=== PATIENT | male | born 1995 | race African-American/Black ===

== ENCOUNTER 2024-09-10 07:43 | Inpatient (IN) ==
--- NOTE | 2024-09-10 08:27 | Emergency Department Note ---
Impression & Plan Pleural effusion, Shortness of breath, Unintended weight loss, Night sweats ED Provider Note NAME: RACHEL [id number] JOSE ANGEL AGE: 29 SEX: M : 1995 ARRIVES VIA: Walk-In INFORMANT: Patient ED PROVIDER(S): Fuentes Russo MD CHIEF COMPLAINT: Pleural effusion, referred. PLAN: Disposition: Admit MEDICAL DECISION MAKING: The patient is a 29-year-old [place] gentleman, Kosovan-speaking, who presents to the emergency department via walk-in from [facility] for evaluation of cough and moderate sized left pleural effusion seen on chest x-ray yesterday in the setting of patient having cough and congestion since his arrival to their facility approximately a week ago. The patient reports that he has had cough that has been ongoing for months and has had fevers and night sweats as well as unintended weight loss for the same amount of time. Patient denies ever having any diagnosis of respiratory illnesses when living in [facility]. On evaluation the patient is no distress, afebrile with heart in the 90s and vital signs otherwise stable. O2 saturation 97% on room air. Patient is diminished breath sounds of the left mid to lower lung jakc. Volar aspect of the left forearm demonstrates circular area of induration >15mm correlating with site of patient's recent PPD test. EKG without volar aspect of left forearm overt acute ischemia. Chest ray demonstrates large left-sided pleural effusion. Findings better characterized on CT imaging subsequently. WBC within normal limits without neutrophilia or left shift. Mild lymphopenia of 0.94 is present. H/H11.1/32.3 with normocytic MCV without prior for comparison. Platelets within normal limits. INR 1.2, nonspecific. Chemistry without metabolic acidosis. Sodium 130 and electrolytes otherwise unremarkable. AST and ALT are mildly elevated at 4186, respectively without prior for comparison. High-sensitivity troponin is undetectable. BNP is normal. Lipase is normal. Procalcitonin is not elevated. Respiratory BioFire was negative. QuantiFERON gold test was obtained and sent out and is pending. Patient also consented to HIV testing for completeness. He denies any history of HIV or concern for exposure. CTA of the chest was performed and was negative for PE. Chest x-ray findings are further characterized with large left pleural effusion with compressive atelectasis of majority of the left lower lobe and a small portion of the left upper lobe. There is no consolidation or pleural effusion on the right. Soft tissue density at the anterior mediastinum with a few lymph nodes measuring up to 1.1 x 1.0 cm. No pericardial effusion. FORREST Carter pulmonology. Appreciate consultation and recommendations. Recommends admission to medicine service for TB rule out and thoracentesis which he will perform today. Case was discussed with Viridiana Mcgill PAC with Dr. [facility], who will evaluate the patient for admission. Further management per admitting team. Triage Nursing notes reviewed and agree them. Prior/external medical records reviewed Vital Signs: reviewed Differential diagnosis: Reactive airway disease, pneumonia, pneumothorax, COPD, CHF, infections, cardiac ischemia, pulmonary embolism, musculoskeletal, gastrointestinal, as well as other pathologies. ER treatment provided: See below. Diagnostics interpreted by me: ECG: Normal sinus rhythm, 96 bpm, no ectopy, no overt ST elevation or depression, QTc 457, QRS 86. Cardiac Monitoring: An order for continuous cardiac monitoring was placed and demonstrated Normal sinus rhythm, 96 bpm, no ectopy. Laboratory studies: See below Imaging studies: See below Consultation(s): FORREST Carter pulmonology. Viridiana Mcgill PAC with Dr. [facility]. HPI: Per MDM. ROS: See above HPI for pertinent positives & negatives. A total of 10 systems reviewed and were otherwise negative. VITALS:See Below PHYSICAL EXAMINATION: GENERAL: Awake, alert, in no distress HENT: Normocephalic, atraumatic. Oropharynx with dry mucous membranes and otherwise unremarkable. EYES: Normal conjunctiva. Sclera non-icteric. NECK: Supple. No nuchal rigidity. FROM. No JVD. RESPIRATORY: Diminished breath sounds of the left mid to lower lung jack CARDIAC: Regular rate, normal rhythm. Extremities warm and well perfused. Pulses equal. ABDOMEN: Soft, non-distended. No tenderness to palpation. No rebound or guarding. No masses. MUSCULOSKELETAL: Chest examination reveals no tenderness. The back is symmetrical on inspection without obvious abnormality. There is no CVA tenderness to palpation. No joint edema. LOWER EXTREMITIES: Calves are equal size bilaterally and non-tender. No edema. No discoloration. NEURO: Normal sensorium. No sensory or motor deficits noted. SKIN: No jaundice noted. Left forearm demonstrates circular area of induration >15mm correlating with site of patient's recent PPD test. Fuentes Russo MD Past Med/Surg History Problem List Night sweats (Acute) Unintended weight loss (Acute) Shortness of breath (Acute) Mediastinal shift Pleural effusion (Acute) Medical History No pertinent past medical history Surgical History No pertinent past surgical history Social History Smoking Status: Never smoker Preferred Language: Kosovan Communication Tools: IPad Current Living Situation: Other Current Living Situation Comment: [facility] half-way Feels Safe at Home: Yes Allergies Allergies Allergy/AdvReac Type Severity Reaction Status Date / Time No Known Allergies Allergy Unverified 09/10/24 11:50 Home Meds Home Medications Medication Instructions Recorded Confirmed guaifenesin 100 mg/5 mL oral 200 mg PO Q4H PRN Cough/Congestion 09/10/24 09/10/24 liquid (Kirsty-Tussin) Results & Data (ED) Vital Signs Vital Signs - 24 hr 09/10/24 07:58 09/10/24 08:43 09/10/24 09:03 Temperature 37.3 C Temperature Source Temporal Artery Scan Pulse Rate 96 H 91 H 98 H Pulse Rate [Apical] Pulse Rate from SpO2 Sensor 99 H Pulse Rhythm Regular Pulse Strength Normal Respiratory Rate 16 17 Respiratory Effort / Characteristics Non-Labored Spontaneous Respiratory Depth Normal Blood Pressure 121/82 Blood Pressure [Right Arm] Blood Pressure Mean 95 Blood Pressure Mean [Right Arm] Blood Pressure Position Sitting Blood Pressure Position [Right Arm] Pulse Oximetry 97 99 Oxygen Delivery Method Room Air Room Air Sepsis Recent Fever Within 48 Hours No Sepsis New/Unexplained Change in Mental Status N/A Sepsis Action Taken by Nursing No Action Required 09/10/24 10:00 09/10/24 11:27 09/10/24 12:00 Temperature Temperature Source Pulse Rate Pulse Rate [Apical] 91 H 89 Pulse Rate from SpO2 Sensor Pulse Rhythm Pulse Strength Respiratory Rate 14 18 Respiratory Effort / Characteristics Non-Labored Spontaneous Non-Labored Spontaneous Respiratory Depth Normal Normal Blood Pressure Blood Pressure [Right Arm] 124/81 128/80 Blood Pressure Mean Blood Pressure Mean [Right Arm] 95 96 Blood Pressure Position Blood Pressure Position [Right Arm] Semi-fowlers Semi-fowlers Pulse Oximetry 99 98 100 Oxygen Delivery Method Room Air Room Air Room Air Sepsis Recent Fever Within 48 Hours Sepsis New/Unexplained Change in Mental Status Sepsis Action Taken by Nursing 09/10/24 12:47 09/10/24 14:00 Temperature Temperature Source Pulse Rate 91 H Pulse Rate [Apical] 114 H Pulse Rate from SpO2 Sensor Pulse Rhythm Pulse Strength Respiratory Rate 29 H Respiratory Effort / Characteristics Non-Labored Spontaneous Respiratory Depth Normal Blood Pressure Blood Pressure [Right Arm] 125/74 Blood Pressure Mean Blood Pressure Mean [Right Arm] 91 Blood Pressure Position Blood Pressure Position [Right Arm] Semi-fowlers Pulse Oximetry 100 Oxygen Delivery Method Room Air Sepsis Recent Fever Within 48 Hours Sepsis New/Unexplained Change in Mental Status Sepsis Action Taken by Nursing Laboratory Data Attestation: I reviewed the patient's lab results. 09/10/24 09:33 09/10/24 09:33 Lab Results 09/10/24 09/10/24 Range/Units 09:33 09:45 WBC 5.76 (4.8-10.8) K/ul RBC 4.03 L (4.70-6.10) M/uL Hgb 11.1 L (14.0-18.0) g/dl Hct 32.3 L (42.0-52.0) % MCV 80.1 (80.0-100.0) fL MCH 27.5 (25.0-34.0) pg MCHC 34.4 (32.0-36.0) g/dL RDW Std Deviation 35.6 L (36.4-46.3) fL RDW Coeff of Luigi 12.1 (11.5-14.5) % Plt Count 382 (130-400) K/uL MPV 9.6 (9.4-12.4) fL Immature Gran % (Auto) 0.7 % Neut % (Auto) 66.6 % Lymph % (Auto) 16.3 % [place] % (Auto) 11.6 % Eos % (Auto) 4.3 % Baso % (Auto) 0.5 % Neut # (Auto) 3.83 (1.40-6.50) K/uL Lymph # (Auto) 0.94 L (1.20-3.40) K/uL [place] # (Auto) 0.67 H (0.11-0.59) K/uL Eos # (Auto) 0.25 (0.00-0.50) K/uL Baso # (Auto) 0.03 (0.00-0.20) K/uL Immature Gran # (Auto) 0.04 (0.01-0.20) K/uL PT 12.4 H (9.0-12.0) Seconds INR 1.2 H (0.9-1.1) Sodium 130 L (136-145) mmol/L Potassium 3.9 (3.5-5.1) mmol/L Chloride 99 (98-107) mmol/L Carbon Dioxide 21 (21-32) mmol/L Anion Gap 10 (3-11) BUN 11 (6-23) mg/dl Creatinine 0.71 (0.6-1.4) mg/dl Est Cr Clr Drug Dosing 146.3 ml/min eGFR 125.79 BUN/Creatinine Ratio 15.5 (10-20) Glucose 93 (70-99(Fasting)) mg/dl Calcium 8.6 (8.6-10.3) mg/dl Magnesium 2.2 (1.7-2.4) mg/dl Total Bilirubin 0.6 (0.2-1.0) mg/dl AST 41 H (13-39) U/L ALT 86 H (7-52) U/L Alkaline Phosphatase 67 (34-104) U/L Troponin I High Sens < 2.3 (0-20) pg/ml B-Natriuretic Peptide 35 (0-100) pg/ml Total Protein 8.5 H (6.0-8.3) gm/dl Albumin 3.3 L (3.4-5.0) gm/dl Globulin 5.2 H (2.5-4.0) gm/dl Albumin/Globulin Ratio 0.6 L (0.9-2) Lipase 17 (11-82) U/L Procalcitonin 0.12 (0-0.5) ng/ml Adenovirus (PCR) Not Detected (NotDetected) B. pertussis DNA (PCR) Not Detected (NotDetected) B.parapertussis DNA PCR Not Detected (NotDetected) C. pneumoniae DNA (PCR) Not Detected (NotDetected) Coronavirus OC43 (PCR) Not Detected (NotDetected) Coronavirus HKU1 (PCR) Not Detected (NotDetected) Coronavirus 229E (PCR) Not Detected (NotDetected) SARS-CoV-2 (PCR) Not Detected (NotDetected) Coronavirus NL63 (PCR) Not Detected (NotDetected) HIV 1&2 Ab/P24 Ag 4thGn Negative (Negative) Human Metapneumovir PCR Not Detected (NotDetected) Influenza Type A (PCR) Not Detected (NotDetected) Influenza Type B (PCR) Not Detected (NotDetected) M. pneumoniae (PCR) Not Detected (NotDetected) Parainfluenza 1 (PCR) Not Detected (NotDetected) Parainfluenza 2 (PCR) Not Detected (NotDetected) Parainfluenza 3 (PCR) Not Detected (NotDetected) Parainfluenza 4 (PCR) Not Detected (NotDetected) RSV (PCR) Not Detected (NotDetected) Entero/Rhino (PCR) Not Detected (NotDetected) TB Test (QFT) Gold Plus Cancelled TB Test (QFT) Nil Cancelled TB Test Mitogen - Nil Cancelled TB Test Ag - Nil 1 Cancelled TB Test Ag - Nil 2 Cancelled Administered Medications Discontinued Medications Ioversol (Optiray 320 125ml) 100 ml IV ONCE ONE Stop: 09/10/24 10:43 Last Admin: 09/10/24 10:43 Dose: 100 ml Documented By: JAR Imaging Data Radiologist's Impression: Chest X-Ray 09/10/24 08:25 XR chest 1V portable CLINICAL HISTORY: Chest pain, nonspecific COMPARISON STUDY: None FINDINGS: Heart size and pulmonary vasculature are normal. There is a large left pleural effusion and consolidation at the left mid and lower lung. Right lung remains well aerated. No pneumothorax. IMPRESSION: Large left pleural effusion and associated consolidation at the left lower lung. Follow-up is recommended to rule out underlying mass. ACT 112: Positive. There are findings on this exam that require communication between the performing entity and the patient following Patient Test Result Information Act ([place] Act 112) guidelines. Electronically signed by: Param Dubon M.D. 09/10/2024 8:39 AM Chest CTA 09/10/24 09:23 CT angio chest PE protocol CT DOSE: 442.81 mGy.cm HISTORY: sob, left pleural effusion, r/o PE. TECHNIQUE: Multiple CTA images of the chest were obtained after the intravenous administration of 100 ml Optiray. Coronal and sagittal MIPS were obtained from the axial data set and were submitted for review. All measurements were obtained according to NASCET criteria. A dose lowering technique was utilized adhering to the principles of ALARA. COMPARISON STUDY: None FINDINGS: There are trace airway secretions. There is a large left pleural effusion with compressive atelectasis of the majority of the left lower lobe and a small portion of the left upper lobe. There is no consolidation or pleural effusion on the right. No pneumothorax. [place] artifact limits evaluation of the mediastinum. There is soft tissue density at the anterior mediastinum with a few lymph nodes, largest measuring 1.1 x 1.0 cm. No enlarged adenopathy seen otherwise. No pericardial effusion. No thoracic aortic dissection or aneurysm. No pulmonary embolism seen. No acute osseous findings. IMPRESSION: 1. No pulmonary embolism seen. 2. Large left pleural effusion with near complete compressive atelectasis of the left lower lung lobe. Recommend follow-up chest CT after the pleural effusion has resolved to rule out underlying mass at the left lower lung lobe. 3. Mild soft tissue density at the anterior mediastinum likely represents residual thymus. There is an upper limits of normal anterior mediastinal lymph node. Suggest attention on follow-up. ACT 112: Positive. There are findings on this exam that require communication between the performing entity and the patient following Patient Test Result Information Act ([place] Act 112) guidelines. The above report was generated using voice recognition software. It may contain grammatical, syntax or spelling errors. Electronically signed by: Param Dubon M.D. 09/10/2024 10:56 AM Discharge Plan Visit Data Chief Complaint: Respiratory Problems Stated Complaint: FLUID ON LUNGS ED Provider: Fuentes Russo Discharge Problem: Pleural effusion, Shortness of breath, Unintended weight loss, Night sweats Patient Disposition: Admitted As Inpatient Condition: Fair Discharge Instructions Interventions: ED Discharge Assessment Last Done: 09/10/24 14:42 Forms Stand Alone Forms: [facility] Prescriptions Prescriptions: No Action guaifenesin [Kirsty-Tussin] 100 mg/5 mL Liquid 200 mg PO Q4H PRN (Reason: Cough/Congestion) Referrals Referrals: PCP,NO [Physician] -
--- NOTE | 2024-09-10 08:41 | XRay Report ---
XR chest 1V portable CLINICAL HISTORY: Chest pain, nonspecific COMPARISON STUDY: None FINDINGS: Heart size and pulmonary vasculature are normal. There is a large left pleural effusion and consolidation at the left mid and lower lung. Right lung remains well aerated. No pneumothorax. IMPRESSION: Large left pleural effusion and associated consolidation at the left lower lung. Follow- up is recommended to rule out underlying mass. ACT 112: Positive. There are findings on this exam that require communication between the performing entity and the patient following Patient Test Result Information Act ([place] Act 112) guidelines. Electronically signed by: Param Dubon M.D. 09/10/2024 8:39 AM
[2024-09-10 09:45] LABS: Basophils # (auto) 0.03 K/uL (0.00-0.20); Basophils % (auto) 0.5 %; Eosinophils # (auto) 0.25 K/uL (0.00-0.50); Eosinophils % (auto) 4.3 %; Hematocrit (blood only) 32.3 % (42.0-52.0); Hemoglobin 11.1 g/dl (14.0-18.0); Immature Granulocytes # (auto) 0.04 K/uL (0.01-0.20); Immature Granulocytes % (auto) 0.7 %; Lymphocytes # (auto) 0.94 K/uL (1.20-3.40); Lymphocytes % (auto) 16.3 %; Mean Corpuscular Hemoglobin 27.5 pg (25.0-34.0); Mean Corpuscular Hgb Conc 34.4 g/dL (32.0-36.0); Mean Corpuscular Volume 80.1 fL (80.0-100.0); Mean Platelet Volume 9.6 fL (9.4-12.4); Monocytes # (auto) 0.67 K/uL (0.11-0.59); Monocytes % (auto) 11.6 %; Neutrophils # (auto) 3.83 K/uL (1.40-6.50); Neutrophils % (auto) 66.6 %; Platelet Count 382 K/uL (130-400); RDW Coefficient of Variation 12.1 % (11.5-14.5); RDW Standard Deviation 35.6 fL (36.4-46.3); Red Blood Count 4.03 M/uL (4.70-6.10); White Blood Count 5.76 K/ul (4.8-10.8)
[2024-09-10 10:10] LABS: Alanine Aminotransferase 86 U/L (7-52); Albumin Globulin Ratio 0.6 (0.9-2); Albumin Level 3.3 gm/dl (3.4-5.0); Alkaline Phosphatase 67 U/L (34-104); Anion Gap 10 (3-11); Aspartate Aminotransferase 41 U/L (13-39); BUN Creatinine Ratio 15.5 (10-20); Bilirubin,Total 0.6 mg/dl (0.2-1.0); Blood Urea Nitrogen 11 mg/dl (6-23); Calcium 8.6 mg/dl (8.6-10.3); Carbon Dioxide 21 mmol/L (21-32); Chloride 99 mmol/L (98-107); Creatinine Clr Calc Pharmacy 146.3 ml/min; Globulin 5.2 gm/dl (2.5-4.0); Glucose 93 mg/dl (70-99(Fasting)); Lipase 17 U/L (11-82); Magnesium 2.2 mg/dl (1.7-2.4); Potassium 3.9 mmol/L (3.5-5.1); Sodium 130 mmol/L (136-145); Total Protein 8.5 gm/dl (6.0-8.3)
[2024-09-10 10:12] LABS: Troponin I High Sensitivity < 2.3 pg/ml (0-20)
[2024-09-10 10:20] LABS: INR 1.2 (0.9-1.1); Prothrombin Time 12.4 Seconds (9.0-12.0)
--- NOTE | 2024-09-10 10:35 | Pulmonary Consultation ---
Date of Consultation September 10, 2024 Assessment & Plan (1) Pleural effusion: (2) Mediastinal shift: (3) Loculated pleural effusion: (4) Night sweats: (5) Unintended weight loss: (6) Shortness of breath: Plan CT chest 09/10/2024 personally reviewed: Large left-sided pleural effusion with mediastinal shift to the right Compressive atelectasis of the left lower lobe No significant mediastinal lymphadenopathy -- Moderate left-sided loculated pleural effusion Differential includes infectious versus noninfectious Tuberculosis-differential given he is from [facility], malignancy cannot be ruled out especially given questionable pleural mass on the bedside ultrasound Procalcitonin 0.12 Respiratory BioFire negative for everything Has lost approximately 8 pounds unintentionally in the recent past, denies any night sweats No known exposure to tuberculosis. Has [employer]. Denies any history of hepatitis or HIV Has never been treated for tuberculosis. Plan: Patient is at high risk for tuberculosis and TB related pleural effusion Would recommend to keep the patient in negative pressure room Continue with broad-spectrum antibiotics AFB sputum daily x 3 Follow sputum culture Will plan to do thoracentesis later today I spent more than 75 minutes looking in the chart, images, discussing the plan of care with the patient with the help of manager supplier, RN as well as primary team Please note the above document was generated using voice recognition software. It may contain grammatical, syntax or spelling errors.Any formal questions or concerns about the content, text or information contained within the body of this dictation should be directly addressed to the provider for clarification. History of Present Illness History of Present Illness 29-year-old male presents to the hospital for cough. Pulmonary consulted for left-sided pleural effusion Past medical history: Noncontributory Patient is originally from [facility], Pakistani-speaking. Audio and video cigar brander was used to help with interrogation and even getting the consent At the time of examination patient was not in respiratory distress He was saturating 97-98% on room air He states that he has not been feeling well for couple of weeks He has been coughing and bringing up clear phlegm. Denies any hemoptysis No unusual headache or blurry vision No abdominal pain No nausea vomiting Has lost approximately 8 pounds unintentionally in the recent past, denies any night sweats No known exposure to tuberculosis. Has [facility] [employer] [facility]. Denies any history of hepatitis or HIV Has never been treated for tuberculosis. Originally from [facility], has been in [place] 2002. Social history: Lifetime non-smoker No pets at home Allergies Allergy/AdvReac Type Severity Reaction Status Date / Time No Known Allergies Allergy Unverified 09/10/24 11:50 Home Medications Medication Instructions Recorded Confirmed Type guaifenesin 100 mg/5 mL oral 200 mg PO Q4H PRN Cough/Congestion 09/10/24 09/10/24 History liquid (Kirsty-Tussin) Patient History Medical History No pertinent past medical history Surgical History No pertinent past surgical history Social History Smoking Status: Never smoker Preferred Language: Pakistani Communication Tools: IPad Current Living Situation: Other Current Living Situation Comment[facility] Feels Safe at Home: Yes Review of Systems 2 Review of Systems: All systems reviewed & are unremarkable except as noted in HPI & below Physical Exam 2 Physical Exam: Constitutional: No acute distress HEENT: EOMI, PERRLA Respiratory system: Decreased air entry in the left side, no wheeze, rhonchi, positive crackles on the left CVS: S1-S2 positive, no murmurs or gallops Abdomen: Soft, nontender, nondistended, positive bowel sounds x4 Extremities: +2 pulses bilaterally radialis/ dorsalis pedis, no cyanosis, no edema Neuro: Awake alert oriented x3 Psych: Normal mood and affect G/U: No [place] Skin: no rashes, warm and dry Lymphatic: no cervical or axillary lymphadenopathy Results & Data Results & Data Vital Signs (Past 12 Hours) Vital Signs Temp Pulse Resp BP Pulse Ox O2 Del Method 09/10/24 09:03 98 H 17 99 Room Air 09/10/24 08:43 91 H 09/10/24 07:58 37.3 C 96 H 16 121/82 97 Room Air Laboratory Results 09/10/24 09:33 09/10/24 09:33 PG Care Time/CCT Total # of Minutes Spent Total Time Spent with Patient: Total time spent is greater than 50% in coordination of care (as documented) at patient's floor/unit and/or counseling patient: Coding Level of Care Code 94251 INT INP/OBS CARE MIN Diagnoses Pleural effusion J90 Mediastinal shift R93.89 Loculated pleural effusion J90 Night sweats R61 Unintended weight loss R63.4 Shortness of breath R06.02
[2024-09-10] MEDS: OPTIRAY 320 125ml IV ONE (10:43)
--- NOTE | 2024-09-10 10:58 | CT Scan Report ---
CT angio chest PE protocol CT DOSE: 442.81 mGy.cm HISTORY: sob, left pleural effusion, r/o PE. TECHNIQUE: Multiple CTA images of the chest were obtained after the intravenous administration of 100 ml Optiray. Coronal and sagittal MIPS were obtained from the axial data set and were submitted for review. All measurements were obtained according to NASCET criteria. A dose lowering technique was u tilized adhering to the principles of ALARA. COMPARISON STUDY: None FINDINGS: There are trace airway secretions. There is a large left pleural effusion with compressive atelectasis of the majority of the left lower lobe and a small portion of the left upper lobe. There is no consolidation or pleural effusion on the right. No pneumothorax. [place] artifact limits evaluati on of the mediastinum. There is soft tissue density at the anterior mediastinum with a few lymph node s, largest measuring 1.1 x 1.0 cm. No enlarged adenopathy seen otherwise. No pericardial effusion. No thoracic aortic dissection or aneurysm. No pulmonary embolism seen. No acute osseous findings. IMPRESSION: 1. No pulmonary embolism seen. 2. Large left pleural effusion with near complete compressive atelectasis of the left lower lung lobe . Recommend follow-up chest CT after the pleural effusion has resolved to rule out underlying mass at the left lower lung lobe. 3. Mild soft tissue density at the anterior mediastinum likely represents residual thymus. There is a n upper limits of normal anterior mediastinal lymph node. Suggest attention on follow-up. ACT 112: Positive. There are findings on this exam that require communication between the performing entity and the patient following Patient Test Result Information Act ([place] Act 112) guidelines. The above report was generated using voice recognition software. It may contain grammatical, syntax o r spelling errors. Electronically signed by: Param Dubon M.D. 09/10/2024 10:56 AM
[2024-09-10 11:01] LABS: Adenovirus PCR Not Detected (NotDetected); Bordetella parapertussis PCR Not Detected (NotDetected); Bordetella pertussis PCR Not Detected (NotDetected); Chlamydia pneumoniae PCR Not Detected (NotDetected); Coronavirus 229E PCR Not Detected (NotDetected); Coronavirus CoV-2 (COVID19)PCR Not Detected (NotDetected); Coronavirus HKU1 PCR Not Detected (NotDetected); Coronavirus NL63 PCR Not Detected (NotDetected); Coronavirus OC43PCR Not Detected (NotDetected); Human Metapneumovirus PCR Not Detected (NotDetected); Influenza A PCR Not Detected (NotDetected); Influenza B PCR Not Detected (NotDetected); Mycoplasma pneumoniae PCR Not Detected (NotDetected); Parainfluenza Virus 1 PCR Not Detected (NotDetected); Parainfluenza Virus 2 PCR Not Detected (NotDetected); Parainfluenza Virus 3 PCR Not Detected (NotDetected); Parainfluenza Virus 4 PCR Not Detected (NotDetected); Respiratory Syncytial VirusPCR Not Detected (NotDetected); Rhinovirus/Enterovirus PCR Not Detected (NotDetected)
--- NOTE | 2024-09-10 12:52 | History & Physical Report ---
Date of Service September 10, 2024 Assessment & Plan (1) Pleural effusion: (2) Mediastinal shift: Plan This is a 29 yr old M who is presenting from [facility] facility with + PPD test, fever, cough, night sweats and weight loss over several months. He is being admitted for evaluation of moderate pleural effusion and rule out of Tuberculosis given high risk individual. Admit to medical airborne isolation precautions He was seen and evaluated by Pulmonology Plan to undergo thoracentesis later today AFB sputum culture daily x 3 days, TB QFT pending for confirmation prn antitussives Regular diet, activity as tolerated Pt is Kyr[place]z speaking and from the country of [facility] Elevated LFTS: no c/o of abd pain, ast 41, alt 86, repeat in a.m. if continues to elevate consider RUQ US DVT ppx: none for now given thoracentesis later today, encourage ambulation given young age, consider chemical ppx tomorrow FULL CODE PCP: [facility] Facility Dispo: admit to medical Pt was seen in collaboration with Dr. Iabnez, please see addendum I spent a total of 60 minutes coordinating, documenting and providing care for this patient excluding time spent in the performance of separately billed services or time spent by another provider/QHP. History of Present Illness Chief Complaint: Referred from [facility] due to abnormal CXR Primary Care Provider: [facility] This is a 29 year male who is from [facility] who presents from [facility] processing facility due to concern for cough x 1 week and CXR revealing moderate sized pleural effusion. Hx obtained from ED provider, provider at [facility] facililty and patient. Pt recently arrived at [facility] about 1 week ago. He did have a PPD there and it was read as negative; however per ED provider it is > 15mm and technically positive. Patient reports night sweats, fever and weight loss over the last several months. In ED he was hemodynamically stable. Lab work notable for h/h 11.1 and 32.2, sodium 130, ast 41, alt [address] chest revealed Large left pleural effusion with near complete compressive atelectasis of the left lower lung lobe. Recommend follow-up chest CT after the pleural effusion has resolved to rule out underlying mass at the left lower lung lobe. He was seen and evaluated by pulmonology in ED who is going to perform a thoracentesis later today. He also has a quantiferon pending. Given concerning sx he will be admitted to TB rule out before he can return back to [facility]. Allergies Allergy/AdvReac Type Severity Reaction Status Date / Time No Known Allergies Allergy Unverified 09/10/24 11:50 Home Medications Medication Instructions Recorded Confirmed Type guaifenesin 100 mg/5 mL oral 200 mg PO Q4H PRN Cough/Congestion 09/10/24 09/10/24 History liquid (Kirsty-Tussin) Past Med/Surg History Problem List (Updated 09/10/24 @ 15:39 by Sg Pisano MD, [facility]) Loculated pleural effusion Night sweats (Acute) Unintended weight loss (Acute) Shortness of breath (Acute) Mediastinal shift Pleural effusion (Acute) Medical History No pertinent past medical history Surgical History No pertinent past surgical history Social History Smoking Status: Never smoker Hx Alcohol Use: No Hx Substance Use: No Preferred Language: Kyrgyz Communication Ability: Impaired Communication Tools: IPad Stove Tender Required: No Current Living Situation: Other Current Living Situation Comment: [facility] Feels Safe at Home: Yes Review of Systems Review of Systems: All systems reviewed & are unremarkable except as noted in HPI & below Physical Exam Physical Exam: please refer to Dr. Ibanez addendum for physical exam findings. Results & Data Results & Data Vital Signs (Past 12 Hours) Vital Signs Temp Pulse Pulse Resp BP BP Pulse Ox 09/10/24 12:47 91 H 09/10/24 12:00 89 18 128/80 100 09/10/24 11:27 98 09/10/24 10:00 91 H 14 124/81 99 09/10/24 09:03 98 H 17 99 09/10/24 08:43 91 H 09/10/24 07:58 37.3 C 96 H 16 121/82 97 O2 Del Method 09/10/24 12:47 09/10/24 12:00 Room Air 09/10/24 11:27 Room Air 09/10/24 10:00 Room Air 09/10/24 09:03 Room Air 09/10/24 08:43 09/10/24 07:58 Room Air Diagnostic Findings Chest X-Ray 09/10/24 08:25 XR chest 1V portable CLINICAL HISTORY: Chest pain, nonspecific COMPARISON STUDY: None FINDINGS: Heart size and pulmonary vasculature are normal. There is a large left pleural effusion and consolidation at the left mid and lower lung. Right lung remains well aerated. No pneumothorax. IMPRESSION: Large left pleural effusion and associated consolidation at the left lower lung. Follow-up is recommended to rule out underlying mass. ACT 112: Positive. There are findings on this exam that require communication between the performing entity and the patient following Patient Test Result Information Act ([place] Act 112) guidelines. Electronically signed by: Param Dubon M.D. 09/10/2024 8:39 AM Chest CTA 09/10/24 09:23 CT angio chest PE protocol CT DOSE: 442.81 mGy.cm HISTORY: sob, left pleural effusion, r/o PE. TECHNIQUE: Multiple CTA images of the chest were obtained after the intravenous administration of 100 ml Optiray. Coronal and sagittal MIPS were obtained from the axial data set and were submitted for review. All measurements were o btained according to NASCET criteria. A dose lowering technique was utilized adhering to the principles of ALARA. COMPARISON STUDY: None FINDINGS: There are trace airway secretions. There is a large left pleural effusion with compressive atelectasis of the majority of the left lower lobe and a small portion of the left upper lobe. There is no consolidation or pleural effusion on the right. No pneumothorax. [place] artifact limits evaluation of the mediastinum. There is soft tissue density at the anterior mediastinum with a few lymph nodes, largest measuring 1.1 x 1.0 cm. No enlarged adenopathy seen otherwise. No pericardial effusion. No thoracic aortic dissection or aneurysm. No pulmonary embolism seen. No acute osseous findings. IMPRESSION: 1. No pulmonary embolism seen. 2. Large left pleural effusion with near complete compressive atelectasis of the left lower lung lobe. Recommend follow-up chest CT after the pleural effusion has resolved to rule out underlying mass at the left lower lung lobe. 3. Mild soft tissue density at the anterior mediastinum likely represents residual thymus. There is an upper limits of normal anterior mediastinal lymph node. Suggest attention on follow-up. ACT 112: Positive. There are findings on this exam that require communication between the performing entity and the patient following Patient Test Result Information Act ([place] Act 112) guidelines. The above report was generated using voice recognition software. It may contain grammatical, syntax or spelling errors. Electronically signed by: Param Dubon M.D. 09/10/2024 10:56 AM Medications Administered Medication List Discontinued Medications Ioversol (Optiray 320 125ml) 100 ml IV ONCE ONE Stop: 09/10/24 10:43 Last Admin: 09/10/24 10:43 Dose: 100 ml Documented By: JAR ECG Additional Comments: I have independently reviewed and interpreted patient's admitting EKG which revealed: 96 NSR, no st or t wave changes COVID-19 Results Results COVID-19 Adm Lab Results: RBC 4.03 M/uL (4.70-6.10) L 09/10/24 WBC 5.76 K/ul (4.8-10.8) 09/10/24 Hgb 11.1 g/dl (14.0-18.0) L 09/10/24 Hct 32.3 % (42.0-52.0) L 09/10/24 Plt Count 382 K/uL (130-400) 09/10/24 Neutrophils (%) (Auto) 66.6 % 09/10/24 Lymphocytes (%) (Auto) 16.3 % 09/10/24 Monocytes # (Auto) 0.67 K/uL (0.11-0.59) H 09/10/24 Eosinophils # (Auto) 0.25 K/uL (0.00-0.50) 09/10/24 Immature Granulocyte % (Auto) 0.7 % 09/10/24 Neutrophils # (Auto) 3.83 K/uL (1.40-6.50) 09/10/24 Lymphocytes # (Auto) 0.94 K/uL (1.20-3.40) L 09/10/24 Monocytes # (Auto) 0.67 K/uL (0.11-0.59) H 09/10/24 Eosinophils # (Auto) 0.25 K/uL (0.00-0.50) 09/10/24 Basophils # (Auto) 0.03 K/uL (0.00-0.20) 09/10/24 Immature Granulocyte # (Auto) 0.04 K/uL (0.01-0.20) 5 Na 130 mmol/L (136-145) L 09/10/24 K 3.9 mmol/L (3.5-5.1) 09/10/24 Cl 99 mmol/L (98-107) 09/10/24 CO2 21 mmol/L (21-32) 09/10/24 Anion Gap 10 (3-11) 09/10/24 BUN 11 mg/dl (6-23) 09/10/24 Creatinine 0.71 mg/dl (0.6-1.4) 09/10/24 BUN/Creatinine Ratio 15.5 (10-20) 09/10/24 Glucose Level 93 mg/dl (70-99(Fasting)) 09/10/24 Ca 8.6 mg/dl (8.6-10.3) 09/10/24 Total Bilirubin 0.6 mg/dl (0.2-1.0) 09/10/24 AST/SGOT 41 U/L (13-39) H 09/10/24 ALT/SGPT 86 U/L (7-52) H 09/10/24 Alkaline Phosphatase 67 U/L (34-104) 09/10/24 Total Protein 8.5 gm/dl (6.0-8.3) H 09/10/24 Albumin 3.3 gm/dl (3.4-5.0) L 09/10/24 Globulin 5.2 gm/dl (2.5-4.0) H 09/10/24 Albumin/Globulin Ratio 0.6 (0.9-2) L 09/10/24 LDH 197 U/L (86-244) 09/10/24 Procalcitonin 0.12 ng/ml (0-0.5) 09/10/24 INR 1.2 (0.9-1.1) H 09/10/24 Adenovirus (PCR) Not Detected (NotDetected) 09/10/24 B. parapertussis DNA (PCR) Not Detected (NotDetected) 08/25 10/18 B. pertussis DNA (PCR) Not Detected (NotDetected) 09/10/24 C. pneumoniae DNA (PCR) Not Detected (NotDetected) 5 Coronavirus Type OC43 (PCR) Not Detected (NotDetected) Coronavirus Type HKU1 (PCR) Not Detected (NotDetected) Coronavirus Type 229E (PCR) Not Detected (NotDetected) COVID-19 PCR Not Detected (NotDetected) 09/10/24 Coronavirus Type NL63 (PCR) Not Detected (NotDetected) Human Metapneumovirus (PCR) Not Detected (NotDetected) Influenza Virus Type A (PCR) Not Detected (NotDetected) Influenza Virus Type B (PCR) Not Detected (NotDetected) M. pneumoniae (PCR) Not Detected (NotDetected) 09/10/24 Parainfluenza Type 1 (PCR) Not Detected (NotDetected) 08/25 10/18 Parainfluenza Type 2 (PCR) Not Detected (NotDetected) 08/25 10/18 Parainfluenza Type 3 (PCR) Not Detected (NotDetected) 08/25 10/18 Parainfluenza Type 4 (PCR) Not Detected (NotDetected) 08/25 10/18 RSV (PCR) Not Detected (NotDetected) 09/10/24 Enterovirus/Rhinovirus (PCR) Not Detected (NotDetected) Chest X-Ray 09/10/24 Code Status & VTE Plan Code Status FULL CODE Supervising Physician Co-Signing Physician Notes Attending Addendum: Case reviewed with the advanced practitioner. I have personally performed a history and physical examination on the patient. History also obtained from the [facility] of [facility] facility I have reviewed the advanced practitioner's documentation on the date of service referenced in note, and I agree with, and take responsibility for the plan of care. please refer to her notes for full details patient seen and examined, records reviewed by myself as well on exam, patient seen resting in bed, comfortable not in distress states he feels fine overall denies chest pain, shortness of breath or any other new symptoms VS noted and reviewed General- oriented x 3, not in distress, speaks in sentences with no effort or accessory muscle use Head- atraumatic Eyes- PERRL, EOMI, anicteric ENT- oropharynx clear Neck- supple, no JVD, no adenopathy, no thyromegaly; carotids +2/2, no bruits appreciated Lungs- (+) chest tube over the left anterior chest wall draining yellow fluid mild decreased BS at the bases R Lung clear to ausculatation Heart- normal rate, regular rhythm; no murmur, no gallop, no rub appreciated Abdomen- normal bowel sounds, nondistended, soft, nontender, no masses or hepatosplenomegaly Extremities- no pretibial edema, no calf tenderness; peripheral pulses intact Neuro- alert, oriented x 3; CN 2-12 grossly intact; motor 5/5 bilaterally;sensation 100% on all extremities; no other gross focal neurologic deficits Skin- warm & dry all labs, imaging noted and reviewed ASSESSMENT AND PLAN> diagnoses and plan of care as per advanced practitioner's notes I spent a total of 45 minutes coordinating, documenting, and providing care for this patient, excluding time spent in the performance of separately billed services or time spent by another provider/QHP. Efe Ibanez MD
--- NOTE | 2024-09-10 15:23 | Procedure Note ---
Procedure Note Date of Service September 10, 2024 Procedure: Left-sided pigtail chest tube insertion Cofounder: Dr. Sg Pisano Indication: Loculated left-sided pleural effusion Consent: Signed by patient and verified with timeout prior to procedure Anesthesia: 1% lidocaine without epinephrine local Procedure: Consent was verified and timeout performed. Appropriate imaging studies were reviewed prior to the procedure. Patient was placed in a seated position. Appropriate site above the diaphragm was selected with the help of Ultrasound on the left midaxillary line fourth intercostal space for chest tube insertion was selected. The skin was prepped and draped in normal sterile fashion. Lidocaine was used for local analgesia. Serous fluid was aspirated via the finder needle. A small skin fabrizio was made with the scalpel and the catheter over the needle apparatus was advanced over the rib into the pleural space. With the help of guidewire and Seldinger technique, 14 Maltese pigtail catheter was inserted and connected to Pleur-evac. No air leak appreciated after that. Chest x-ray to follow Fluid was sent for labs, culture and cytology. The patient tolerated the procedure without obvious complication Complications: None Blood loss: Less than 2 cc. [facility] Procedure Codes (Charges) Pulmonary/Thoracic Procedure 1: Pulmonary and Thoracic: 98072 Tube thoracostomy Procedure 2: Pulmonary and Thoracic: 48354 Pleural drainage w/o imaging Coding CPT Codes Pulmonary/Thoracic - Pulmonary and Thoracic: 92911 Tube thoracostomy ([id number]) Pulmonary/Thoracic - Pulmonary and Thoracic: 79900 Pleural drainage w/o imaging ([id number]) Additional Codes Date of Service (PG.SURGERY)
--- NOTE | 2024-09-10 15:31 | Procedure Note ---
Procedure Note Date of Service September 10, 2024 Bedside Ultrasound: Lung: Right:-No pleural effusion, A-line's appreciated anteriorly and posteriorly Left:-Large left-sided pleural effusion, thin multiple septations appreciated, questionable pleural-based mass Please note the above document was generated using voice recognition software. It may contain grammatical, syntax or spelling errors.Any formal questions or concerns about the content, text or information contained within the body of this dictation should be directly addressed to the provider for clarification. [facility] Procedure Codes (Charges) Pulmonary/Thoracic Procedure 1: Pulmonary and Thoracic: 00337 US, Chest, real time with imaging documentation Coding CPT Codes Pulmonary/Thoracic - Pulmonary and Thoracic: 30766 US, Chest, real time with imaging documentation ([id number]) Additional Codes Date of Service (PG.SURGERY)
--- NOTE | 2024-09-10 15:51 | XRay Report ---
XR chest 1V portable CLINICAL HISTORY: S/P Thoracentesis COMPARISON STUDY: 09/10/2024 FINDINGS: There is an interval left pleural catheter at the left base. There is a stable large left p leural effusion and associated left lower lung consolidation. No pneumothorax. IMPRESSION: Interval chest tube at the left base. Otherwise stable exam. ACT 112: Negative or not required by law. Electronically signed by: Param Dubon M.D. 09/10/2024 3:49 PM
[2024-09-10] MEDS ORDERED: POLYETHYLENE (MIRALAX) 17 GM PACK PO PRN (16:25)
[2024-09-10] MEDS ORDERED: ONDANSETRON INJ 2 MG/ML 2 ML VIAL IV PRN (16:25)
[2024-09-10] MEDS ORDERED: guaiFENesin 600 MG TABCR PO PRN (16:25)
[2024-09-10 17:24] LABS: Albumin Level 3.3 gm/dl (3.4-5.0); Bilirubin,Total 0.6 mg/dl (0.2-1.0); Total Protein 8.5 gm/dl (6.0-8.3)
[2024-09-10 19:24] LABS: Appearance Pleural Fluid Slightly Hazy; Color Pleural Fluid Straw; RBC Pleural Fluid Auto 5000 /uL; Source Pleural Fluid Left Lung; WBC Pleural Fluid Auto 1707 /uL
[2024-09-10 19:38] LABS: Total Protein Pleural Fluid 6.2 gm/dl
[2024-09-10 21:06] LABS: Appearance Urine Clear (Clear); Bacteria Urine Automated None Seen (None Seen); Bilirubin Urine Negative (Negative); Blood Urine Trace (Negative); Cast Urine Automated 0-2 /lpf (0-2); Color Urine Yellow; Epithelial Cell Urine Auto 0-2 /hpf (0-2); Glucose Urine UA Negative (Negative); Ketones Urine 1+ (Negative); Leukocyte Esterase Urine Negative (Negative); Nitrite Urine Negative (Negative); Protein Urine 1+ (Negative); RBC Urine Automated 0-2 /hpf (0-2); Specific Gravity Urine > 1.045 (1.000-1.030); Urobilinogen Urine Negative (Negative); WBC Urine Automated 0-5 /hpf (0-5)
--- NOTE | 2024-09-10 21:41 | Electrocardiogram Report ---
Test Reason : Blood Pressure : */* mmHG Vent. Rate : 96 BPM Atrial Rate : 96 BPM P-R Int : 130 ms QRS Dur : 86 ms QT Int : 362 ms P-R-T Axes : 60 53 59 degrees QTcB Int : 457 ms Normal sinus rhythm Normal ECG No previous ECGs available Confirmed by Jose Schwarz ([id number]) on 09/10/2024 9:40:43 PM Referred By: [facility] Confirmed By: Jose Schwarz
[2024-09-11] MEDS: ACETAMINOPHEN 325 MG TAB PO PRN (03:54)
[2024-09-11] MEDS: MELATONIN 3 MG TAB PO PRN (03:55)
[2024-09-11 05:54] LABS: Basophils # (auto) 0.02 K/uL (0.00-0.20); Basophils % (auto) 0.3 %; Eosinophils # (auto) 0.05 K/uL (0.00-0.50); Eosinophils % (auto) 0.8 %; Hematocrit (blood only) 32.8 % (42.0-52.0); Hemoglobin 11.2 g/dl (14.0-18.0); Immature Granulocytes # (auto) 0.03 K/uL (0.01-0.20); Immature Granulocytes % (auto) 0.5 %; Lymphocytes % (auto) 11.7 %; Mean Corpuscular Hemoglobin 27.3 pg (25.0-34.0); Mean Corpuscular Hgb Conc 34.1 g/dL (32.0-36.0); Mean Corpuscular Volume 79.8 fL (80.0-100.0); Monocytes # (auto) 0.63 K/uL (0.11-0.59); Monocytes % (auto) 10.5 %; Neutrophils # (auto) 4.57 K/uL (1.40-6.50); Neutrophils % (auto) 76.2 %; Platelet Count 372 K/uL (130-400); RDW Coefficient of Variation 12.3 % (11.5-14.5); RDW Standard Deviation 35.6 fL (36.4-46.3); Red Blood Count 4.11 M/uL (4.70-6.10)
[2024-09-11 06:11] LABS: Albumin Globulin Ratio 0.6 (0.9-2); Albumin Level 3.1 gm/dl (3.4-5.0); BUN Creatinine Ratio 15.2 (10-20); Bilirubin,Total 0.6 mg/dl (0.2-1.0); Calcium 8.5 mg/dl (8.6-10.3); Creatinine Clr Calc Pharmacy 131.5 ml/min; Magnesium 2.2 mg/dl (1.7-2.4); Potassium 4.1 mmol/L (3.5-5.1); Total Protein 8.1 gm/dl (6.0-8.3)
[2024-09-11 06:30] LABS: Ferritin 275.5 ng/ml (8-388)
[2024-09-11 06:35] LABS: Folate (Folic Acid),Ser orPlas 13.54 ng/ml (>5.38)
--- NOTE | 2024-09-11 07:34 | XRay Report ---
EXAM: XR chest 1V portable CLINICAL HISTORY: Follow-up. TECHNIQUE: X-ray image of the chest obtained in 1 frontal projection. COMPARISON: No prior studies available for comparison. FINDINGS: Pulmonary Parenchyma: Mild left hydropneumothorax with chest tube in situ. Air space opacities in the left lower zone. The right lung and coistrophrenic angle are clear. Heart and Mediastinum: Heart size and shape are normal. No mediastinal widening or masses. No hilar or mediastinal lymphadenopathy. Bony Thorax: Bony thorax appears intact without fractures or deformities. Soft Tissues: Soft tissues overlying the chest wall are unremarkable. IMPRESSION: 1. Mild left hydropneumothorax with chest tube in situ. 2. Air space opacities in the left lower zone could be infective consolidations or secondary collapse. Electronically signed by Darren Patrick 09-11-2024 07:33 AM
[2024-09-11 08:33] LABS: Lymphocytes, Fluid 97 %; Mono,Macrophage,Mesothelial 2 %; Neutrophils, Fluid 1 %
[2024-09-11] MEDS: cefTRIAXone SODIUM 2,000 MG/50 ML BAG IV SCH (12:15)
--- NOTE | 2024-09-11 13:19 | Hospitalist Progress Note ---
Date of Service September 11, 2024 Assessment & Plan (1) Loculated pleural effusion: (2) Unintended weight loss: (3) Night sweats: (4) Tuberculosis high risk: Plan Patient 29-year-old gentleman presents with weight loss, night sweats, loculated left pleural effusion and imaging finding consistent with TB and a positive PPD. Continue chest tube management Communication with pulmonary team/ Dr. Pisano-due to loculated pleural effusion will initiate MIST 2 protocol. Starting ceftriaxone for possible community- acquired pneumonia. Awaiting further confirmatory testing for TB treatment. Informed security team that with this protocol patient will be in the hospital at least 3 additional days. More likely next week discharge plans Admission and Anticipated Discharge Date Admission Date: September 10, 2024 Subjective Patient offers no specific complaints. Physical Exam Physical Exam: Constitutional: Alert, thin, no acute respiratory distress HEENT: Mucous membranes moist. Lungs: Decreased breath sounds, chest tube in place left chest CV: S1-S2, regular Abdomen: Soft, nontender, nondistended Extremities: No significant edema Neuro: No focal deficits Psych: Cooperative, normal mood Results & Data Results & Data Vital Signs (Past 12 Hours) Vital Signs Temp Pulse Resp BP Pulse Ox O2 Del Method 09/11/24 12:56 36.7 C 86 16 111/73 100 Room Air 09/11/24 07:47 36.7 C 77 16 106/70 100 Room Air 09/11/24 07:20 Room Air Diagnostic Findings Reviewed imaging, laboratory and diagnostic studies. Pertinent findings as below. 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
[2024-09-11] MEDS: DORNASE ALFA 5 ML in SYRINGE 25 ML IPL SCH (14:39)
--- NOTE | 2024-09-11 17:03 | Pulmonology Progress Note ---
Date of Service September 11, 2024 Assessment & Plan (1) Pleural effusion: (2) Mediastinal shift: (3) Loculated pleural effusion: (4) Night sweats: (5) Unintended weight loss: (6) Shortness of breath: Plan CT chest 09/10/2024 personally reviewed: Large left-sided pleural effusion with mediastinal shift to the right Compressive atelectasis of the left lower lobe No significant mediastinal lymphadenopathy -- Moderate left-sided loculated pleural effusion Differential includes infectious versus noninfectious Tuberculosis-differential [facility], malignancy cannot be ruled out especially given questionable pleural mass on the bedside ultrasound Gold QuantiFERON positive S/p pigtail catheter placement 09/11/2024, exudative, lymphocytic Pleural fluid: LDH 518, protein 6.2 Follow-up pleural adenosine deaminase Procalcitonin 0.12 Respiratory BioFire negative for everything Has lost approximately 8 pounds unintentionally in the recent past, denies any night sweats No known exposure to tuberculosis. Has [facility]. Denies any history of hepatitis or HIV Has never been treated for tuberculosis. Plan: Bedside ultrasound showed loculations in the left pleural cavity. Patient will benefit from mist 2 protocol. Patient is at high risk for tuberculosis and TB related pleural effusion Will start the patient on Rocephin for 5 days AFB sputum daily x 3 I spent more than 50 minutes looking in the chart, images, discussing the plan of care with the patient with the help of official court interpreter, RN as well as primary team Please note the above document was generated using voice recognition software. It may contain grammatical, syntax or spelling errors.Any formal questions or concerns about the content, text or information contained within the body of this dictation should be directly addressed to the provider for clarification. Admission and Anticipated Discharge Date Admission Date: September 10, 2024 Subjective Patient seen and examined at bedside. No acute distress, no adverse events overnight Complain of mild discomfort at the site of the chest tube. Has been bringing up some phlegm. Denies any unusual headache or blurry vision Has been afebrile Review of Systems 2 Review of Systems: All systems reviewed & are unremarkable except as noted in Subjective Physical Exam 2 Physical Exam: Constitutional: No acute distress HEENT: EOMI, PERRLA Respiratory system: Decreased air entry in the left side, no wheeze, rhonchi, positive crackles on the left CVS: S1-S2 positive, no murmurs or gallops Abdomen: Soft, nontender, nondistended, positive bowel sounds x4 Extremities: +2 pulses bilaterally radialis/ dorsalis pedis, no cyanosis, no edema Neuro: Awake alert oriented x3 Psych: Normal mood and affect G/U: No [place] Skin: no rashes, warm and dry Lymphatic: no cervical or axillary lymphadenopathy Results & Data Results & Data Vital Signs (Past 12 Hours) Vital Signs Temp Pulse Resp BP Pulse Ox O2 Del Method 09/11/24 12:56 36.7 C 86 16 111/73 100 Room Air 09/11/24 07:47 36.7 C 77 16 106/70 100 Room Air 09/11/24 07:20 Room Air Laboratory Results 09/11/24 05:18 09/11/24 05:18 PG Care Time/CCT Total # of Minutes Spent Total Time Spent with Patient: Total time spent is greater than 50% in coordination of care (as documented) at patient's floor/unit and/or counseling patient: Coding Level of Care Code 21832 SUB INP/OBS CARE 3/50MIN Diagnoses Pleural effusion J90 Mediastinal shift R93.89 Loculated pleural effusion J90 Night sweats R61 Unintended weight loss R63.4 Shortness of breath R06.02
--- NOTE | 2024-09-11 17:04 | Procedure Note ---
Procedure Note Date of Service September 11, 2024 Bedside Ultrasound: Lung: Right:-Moderate right-sided pleural effusion, A-line's anteriorly and posteriorly Left:-Small pleural effusion with significant loculations, thickened parietal pleura Please note the above document was generated using voice recognition software. It may contain grammatical, syntax or spelling errors.Any formal questions or concerns about the content, text or information contained within the body of this dictation should be directly addressed to the provider for clarification. [facility] [place] Procedure Codes (Charges) Pulmonary/Thoracic Procedure 1: Pulmonary and Thoracic: 34404 US, Chest, real time with imaging documentation Coding CPT Codes Pulmonary/Thoracic - Pulmonary and Thoracic: 35935 US, Chest, real time with imaging documentation ([id number]) Additional Codes Date of Service (PG.SURGERY)
--- NOTE | 2024-09-12 07:52 | XRay Report ---
EXAM: XR chest 1V portable CLINICAL HISTORY: f/u TECHNIQUE: Radiograph of chest was acquired. COMPARISON: 09/11/2024 05:53:32 [employer] FINDINGS: Interval decrease of left minimal pneumothorax with chest tube insitu within the air pocket Ill defined haziness in left lower zone Rest of the lungs are clear and well-expanded with no pulmonary infiltrate or pleural effusion. The cardiomediastinal silhouette is within normal limits. No acute osseous abnormality. IMPRESSION: Left minimal pneumothorax with chest tube insitu within the air pocket- interval decrease compared to prior study Ill defined haziness in left lower zone Electronically signed by Demetrio Sosa 09-12-2024 07:51 AM
[2024-09-12 08:11] LABS: Basophils # (auto) 0.02 K/uL (0.00-0.20); Basophils % (auto) 0.4 %; Eosinophils # (auto) 0.09 K/uL (0.00-0.50); Eosinophils % (auto) 1.9 %; Hematocrit (blood only) 35.7 % (42.0-52.0); Immature Granulocytes # (auto) 0.04 K/uL (0.01-0.20); Immature Granulocytes % (auto) 0.8 %; Lymphocytes # (auto) 0.76 K/uL (1.20-3.40); Lymphocytes % (auto) 15.7 %; Mean Corpuscular Hemoglobin 26.7 pg (25.0-34.0); Mean Corpuscular Hgb Conc 33.6 g/dL (32.0-36.0); Mean Corpuscular Volume 79.5 fL (80.0-100.0); Mean Platelet Volume 9.4 fL (9.4-12.4); Monocytes # (auto) 0.57 K/uL (0.11-0.59); Monocytes % (auto) 11.8 %; Neutrophils # (auto) 3.35 K/uL (1.40-6.50); Neutrophils % (auto) 69.4 %; Platelet Count 363 K/uL (130-400); RDW Coefficient of Variation 12.4 % (11.5-14.5); RDW Standard Deviation 35.8 fL (36.4-46.3); Red Blood Count 4.49 M/uL (4.70-6.10); White Blood Count 4.83 K/ul (4.8-10.8)
[2024-09-12 08:30] LABS: BUN Creatinine Ratio 14.7 (10-20); Calcium 8.7 mg/dl (8.6-10.3); Creatinine Clr Calc Pharmacy 138.5 ml/min; Potassium 4.4 mmol/L (3.5-5.1)
[2024-09-12] MEDS: FERROUS SULFATE 325 MG TAB PO SCH (09:26)
--- NOTE | 2024-09-12 09:28 | Pulmonology Progress Note ---
Date of Service September 12, 2024 Assessment & Plan (1) Pleural effusion: (2) Mediastinal shift: (3) Loculated pleural effusion: (4) Night sweats: (5) Unintended weight loss: (6) Shortness of breath: Plan CT chest 09/10/2024 personally reviewed: Large left-sided pleural effusion with mediastinal shift to the right Compressive atelectasis of the left lower lobe No significant mediastinal lymphadenopathy Chest X-ray 09/12/2024: Decrease in left pleural effusion with small pneumothorax likely entrapped lung. -- Moderate left-sided loculated pleural effusion Differential includes infectious versus noninfectious Tuberculosis-differential given he is from [facility], malignancy cannot be ruled out especially given questionable pleural mass on the bedside ultrasound Bedside ultrasound on 09/11/2024 showed loculations in the left pleural cavity. MIST 2 protocol initiated 09/11/2024 Gold QuantiFERON positive S/p pigtail catheter placement 09/11/2024, exudative, lymphocytic, cytology negative for malignancy Pleural fluid: LDH 518, protein 6.2 Follow-up pleural adenosine deaminase Procalcitonin 0.12 Respiratory BioFire negative for everything Has lost approximately 8 pounds unintentionally in the recent past, denies any night sweats No known exposure to tuberculosis. Has family [facility]. Denies any history of hepatitis or HIV Has never been treated for tuberculosis. Admission and Anticipated Discharge Date Admission Date: September 10, 2024 Supervising Physician Co-Signing Physician Notes I saw and evaluated the patient with CAROL Berman, and agree with findings and plan as documented in the note. Patient seen and examined at bedside. No acute distress, no adverse events overnight Denied any discomfort at the site of the chest tube Has been tolerating MIST 2 protocol. Serous drainage appreciated from the tube Has been afebrile Constitutional: No acute distress HEENT: EOMI, PERRLA Respiratory system: Decreased air entry in the left side, no wheeze, rhonchi, positive crackles on the left CVS: S1-S2 positive, no murmurs or gallops Abdomen: Soft, nontender, nondistended, positive bowel sounds x4 Extremities: +2 pulses bilaterally radialis/ dorsalis pedis, no cyanosis, no edema Neuro: Awake alert oriented x3 Psych: Normal mood and affect G/U: No Solis Plan: Chest x-ray from today on personal review shows improvement in the aeration of the left lower lobe, hydropneumothorax on the left lower side still persists Continue MIST 2 protocol. Finish the course of Rocephin for 5 days AFB sputum daily x 3 Follow up pleural fluid adenosine deaminase Case was discussed with RN at bedside and primary team Please note the above document was generated using voice recognition software. It may contain grammatical, syntax or spelling errors.Any formal questions or concerns about the content, text or information contained within the body of this dictation should be directly addressed to the provider for clarification. Subjective Lung ultrasound 09/11/2024 showed loculations in the left pleural cavity. MIST 2 protocol initiated. CXR this am showing interval improvement of left pleural effusion with small pneumothorax likely ex vacuo and entrapped lung. AFB cultures pending. Review of Systems 2 Review of Systems: All systems reviewed & are unremarkable except as noted in HPI & below Physical Exam 2 Physical Exam: Constitutional: No acute distress HEENT: EOMI, PERRLA Respiratory system: Decreased air entry in the left side, no wheeze, rhonchi, positive crackles on the left CVS: S1-S2 positive, no murmurs or gallops Abdomen: Soft, nontender, nondistended, positive bowel sounds x4 Extremities: +2 pulses bilaterally radialis/ dorsalis pedis, no cyanosis, no edema Neuro: Awake alert oriented x3 Psych: Normal mood and affect G/U: No Solis Skin: no rashes, warm and dry Lymphatic: no cervical or axillary lymphadenopathy Results & Data Results & Data Vital Signs (Past 12 Hours) Vital Signs Temp Pulse Resp BP Pulse Ox O2 Del Method 09/12/24 08:00 36.6 C 74 16 111/61 99 Room Air 09/11/24 23:15 37.7 C H 93 H 16 111/76 98 Room Air Laboratory Results 09/12/24 07:48 09/12/24 07:48 Abnormal Lab Results 09/10/24 09/12/24 09/12/24 09:33 07:48 Unknown WBC 4.83 RBC 4.49 L Hgb 12.0 L Hct 35.7 L MCV 79.5 L MCH 26.7 MCHC 33.6 RDW Std Deviation 35.8 L RDW Coeff of Luigi 12.4 Plt Count 363 MPV 9.4 Immature Gran % (Auto) 0.8 Neut % (Auto) 69.4 Lymph % (Auto) 15.7 Fountain % (Auto) 11.8 Eos % (Auto) 1.9 Baso % (Auto) 0.4 Neut # (Auto) 3.35 Lymph # (Auto) 0.76 L Fountain # (Auto) 0.57 Eos # (Auto) 0.09 Baso # (Auto) 0.02 Immature Gran # (Auto) 0.04 Sodium 127 L Potassium 4.4 Chloride 95 L Carbon Dioxide 25 Anion Gap 7 BUN 11 Creatinine 0.75 Est Cr Clr Drug Dosing 138.5 eGFR 123.73 BUN/Creatinine Ratio 14.7 Glucose 107 H Osmolality 267 L Calcium 8.7 TSH 1.093 Urine Osmolality 881 H TB Test (QFT) Gold Plus POSITIVE A TB Test (QFT) Nil 1.120 TB Test (QFT) Mitogen > 10.000 TB Test (QFT) Ag 1 > 10.000 TB Test (QFT) Ag 2 > 10.000 Diagnostic Findings Chest X-Ray 09/12/24 07:00 EXAM: XR chest 1V portable CLINICAL HISTORY: f/u TECHNIQUE: Radiograph of chest was acquired. COMPARISON: 09/11/2024 05:53:32 COUNTER MANAGER FINDINGS: Interval decrease of left minimal pneumothorax with chest tube insitu within the air pocket Ill defined haziness in left lower zone Rest of the lungs are clear and well-expanded with no pulmonary infiltrate or pleural effusion. The cardiomediastinal silhouette is within normal limits. No acute osseous abnormality. IMPRESSION: Left minimal pneumothorax with chest tube insitu within the air pocket- interval decrease compared to prior study Ill defined haziness in left lower zone Electronically signed by Demetrio Sosa 09-12-2024 07:51 AM PG Care Time/CCT Total # of Minutes Spent Total Time Spent with Patient: Total time spent is greater than 50% in coordination of care (as documented) at patient's floor/unit and/or counseling patient: Coding Level of Care Code 52258 SUB INP/OBS CARE 2/35MIN Diagnoses Pleural effusion J90 Mediastinal shift R93.89 Loculated pleural effusion J90 Night sweats R61 Unintended weight loss R63.4 Shortness of breath R06.02
--- NOTE | 2024-09-12 13:45 | Hospitalist Progress Note ---
Date of Service September 12, 2024 Assessment & Plan (1) Loculated pleural effusion: (2) Unintended weight loss: (3) Night sweats: (4) Tuberculosis high risk: Plan Mr. Gruber 29 yr old Macanese speaking gentleman admitted for moderate pleural effusion and high risk TB. He is from a [facility] facility with + PPD test, fever, cough, night sweats and weight loss over several months. He is being admitted for evaluation of moderate pleural effusion and rule out of Tuberculosis given high risk individual. 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, PPD + #Left loculated pleural effusion pending AFB cultures s/p pigtail placement 09/11 MIST 2 protocol started on 09/11 pt from [facility] following Plan for ID consult for therapy initation given high risk continue air bourne precautions #Hyponatremia suspect SIADH iso TB serum osmo 267, urine 881 TSHwnl reduce FR to 1200 start urea consult nephrology for further recommendations & f/u as urea is likely not sustainable option iso [facility] facility #Transaminitis repeat cmp in am #microcytic anemia iron deficient on labs start ferrous sulfate daily #moderate protein familia malnutrition bmi 19.4 case assembler consulted DVT ppx: scds Admission and Anticipated Discharge Date Admission Date: September 10, 2024 Subjective Evalauted patient at bedside Patient from [facility] He denies any acute concerns, but also not very participative in examination Physical Exam Constitutional: WD/WN, vitals as above Respiratory: normal respiratory effort, lungs clear to auscultation left pig tail in place Gastrointestinal (Abdomen): normal bowel sounds, soft, nontender, no hepatosplenomegaly Results & Data Results & Data Vital Signs (Past 12 Hours) Vital Signs Temp Pulse Resp BP Pulse Ox O2 Del Method 09/12/24 08:00 36.6 C 74 16 111/61 99 Room Air 09/12/24 07:25 Room Air Laboratory Results Short CBC 09/12/24 Range/Units 07:48 WBC 4.83 (4.8-10.8) K/ul Hgb 12.0 L (14.0-18.0) g/dl Hct 35.7 L (42.0-52.0) % Plt Count 363 (130-400) K/uL BMP 09/12/24 07:48 Sodium 127 L Potassium 4.4 Chloride 95 L Carbon Dioxide 25 BUN 11 Creatinine 0.75 Glucose 107 H Calcium 8.7 Medications Administered Home Medications Medication Instructions Recorded Confirmed Last Taken guaifenesin 100 mg/5 mL oral 200 mg PO Q4H PRN Cough/Congestion 09/10/24 09/10/24 Unknown liquid (Kirsty-Tussin) Active Medications Generic Name Dose Route Start Last Admin Trade Name Freq PRN Reason Stop Dose Admin Acetaminophen 650 mg 09/10/24 16:25 09/12/24 05:02 Acetaminophen 325 Mg Tab PO 10/10/24 16:24 650 mg Q4H PRN Administration pain/fever Ferrous Sulfate 325 mg 09/12/24 09:00 09/12/24 09:26 Ferrous Sulfate 325 Mg Tab PO 10/12/24 08:59 325 mg QAM ELAYNE Administration Alteplase, Recombinant 5 mg/ 55 mls @ 0 mls/hr 09/11/24 12:00 09/12/24 12:44 Syringe IPL 09/14/24 00:01 50 mls/hr Q12H ELAYNE Administration Protocol As Directed Dornase Ck 5 ml/ Syringe 30 mls @ 0 mls/hr 09/11/24 12:00 09/12/24 12:44 IPL 09/14/24 00:01 25 mls/hr Q12H ELAYNE Administration Protocol As Directed Ceftriaxone Sodium 2,000 mg in 50 mls @ 100 mls/hr 09/11/24 12:00 09/12/24 13:33 Rocephin IV 09/16/24 11:59 Infused Q24H ELAYNE Infusion Melatonin 6 mg 09/10/24 21:00 09/11/24 23:17 Melatonin 3 Mg Tab PO 10/10/24 20:59 6 mg HS PRN Administration Sleep
--- NOTE | 2024-09-12 14:57 | Nephrology Consultation ---
Date of Consultation September 12, 2024 Assessment & Plan (1) Hyponatremia: Likeliest SIADH d/t lung disease; however hypovolemic hyponatremia also a clinical possibility. he is 4.1 L negative on the admission. he presented 09/10 w/ urine studies looking already dehydrated, though could theoretically also be c/w SIADH. sNa 130 on presentation, dropped to 127 next day and plateau'd there. uOsm and sOsm respectively 09/12 881, 267. BMI 19. no PATTERNMAKER HELPER medications. -suggest contracts director eval w/ target 70 gm daily protein intake, since urea not likely available after d/c -maintain K 4 so Na can correct -daily bmp > though did order repeat BMP this PM to see more of a trend -added urine electrolytes and repeat UA to urine specimen from today which had urine osms 881 >would hold off on urea or lasix or other intervention until urine studies post >> ddx includes hypovolemic hyponatremia versus SIADH related to lung dz Care coordinated w/ Dr Irving via TTExt re pending tests, repeat BMP, approach to sodium mgt/care; we are in agreement. (2) Tuberculosis high risk: here for TB r/o; pulm following -AFB x 3 sputum pending; AFB pending pl fluid -blood cxs and sputum cxs NGTD -ID c/s pending History of Present Illness Reason for Consultation: SIADH Requesting Physician: Dr Irving Attending Physician: Abbey Irving MD History of Present Illness 29 y/o M [facility] prisoner whom I'm asked to evaluate for SIADH was admitted 09/10 w/ concern for TB, large L pleural effusion. TB will need to be r/o'd before he can return to halfway facility. No significant PMH. Endorses NS, F, wt loss over several months; 1 wk of cough. PPD read as negative at halfway facility but per ED provider it's positive at >15 mm. sNa on presentation 130, dropped to 127 yesterday and today. uOsm 881, sOsms 267 today; urine SG on arrival > 1045 w/ ketones. CT chest revealed Large left pleural effusion with near complete compressive atelectasis of the left lower lobe. Pulmonary is following> pt is s/p chest tube placement and has pending quantiferon. He is undergoing the MIST2 protocol and pleural effusion on L is decreasing w/ 3.3L CT output total so far. He is slated to start this evening on urea 15 gm bid;; has been since admission on 1.2L FR. he c/o L sided chest pain. denies n/v, sob, ongoing cough, wheeze, current chills/sweats, edema, diarrhea, abdominal or musculoskeletal pain. denies thirst. Allergies Allergy/AdvReac Type Severity Reaction Status Date / Time No Known Allergies Allergy Unverified 09/10/24 11:50 Home Medications Medication Instructions Recorded Confirmed Type guaifenesin 100 mg/5 mL oral 200 mg PO Q4H PRN Cough/Congestion 09/10/24 09/10/24 History liquid (Kirsty-Tussin) Patient History Medical History No pertinent past medical history Surgical History No pertinent past surgical history Social History Smoking Status: Never smoker Hx Alcohol Use: No Hx Substance Use: No Preferred Language: Argentine Communication Ability: Impaired Communication Tools: IPad Staff Electronic Warfare Officer Required: No Current Living Situation: Other Current Living Situation Comment: [facility] Feels Safe at Home: Yes Review of Systems 2 Review of Systems: All systems reviewed & are unremarkable except as noted in HPI & below Physical Exam 2 Constitutional: well developed, + thin and cooperative; no acute distress and not ill appearing (but appears tired) Eyes: EOM intact bilaterally ENMT: Mouth: + dry oral mucous membranes (markedly so) Respiratory: normal respiratory effort Auscultation: + diminished lung sounds (L base; chest tube present) and + wheezes (R insp) Cardiovascular: RRR, no murmur, no edema Gastrointestinal (Abdomen): Inspection/Auscultation: normal bowel sounds P ercussion/Palpation: abdomen soft; abdomen nontender Musculoskeletal: Extremities: strength 5/5 throughout Skin: no rashes, warm and dry Neurologic: parmar, fluent though limited speech, no tremor; tired but not lethargic Results & Data Vital Signs (Past 12 Hours) Vital Signs Temp Pulse Resp BP Pulse Ox O2 Del Method 09/12/24 08:00 36.6 C 74 16 111/61 99 Room Air 09/12/24 07:25 Room Air Laboratory Results 09/12/24 07:48 09/12/24 07:48 Diagnostic Findings CTA chest 09/10 FINDINGS: There are trace airway secretions. There is a large left pleural effusion with compressive atelectasis of the majority of the left lower lobe and a small portion of the left upper lobe. There is no consolidation or pleural effusion on the right. No pneumothorax. [place] artifact limits evaluation of the mediastinum. There is soft tissue density at the anterior mediastinum with a few lymph nodes, largest measuring 1.1 x 1.0 cm. No enlarged adenopathy seen otherwise. No pericardial effusion. No thoracic aortic dissection or aneurysm. No pulmonary embolism seen. No acute osseous findings. IMPRESSION: 1. No pulmonary embolism seen. 2. Large left pleural effusion with near complete compressive atelectasis of the left lower lung lobe. Recommend follow-up chest CT after the pleural effusion has resolved to rule out underlying mass at the left lower lung lobe. 3. Mild soft tissue density at the anterior mediastinum likely represents residual thymus. There is an upper limits of normal anterior mediastinal lymph node. Suggest attention on follow-up.
[2024-09-12 15:42] LABS: Urine Potassium 76.4 mmol/L
[2024-09-12 16:38] LABS: BUN Creatinine Ratio 16.5 (10-20); Calcium 8.7 mg/dl (8.6-10.3); Creatinine Clr Calc Pharmacy 131.5 ml/min; Potassium 4.2 mmol/L (3.5-5.1)
[2024-09-12 16:54] LABS: Appearance Urine Clear (Clear); Bacteria Urine Automated None Seen (None Seen); Bilirubin Urine Negative (Negative); Blood Urine Negative (Negative); Cast Urine Automated 0-2 /lpf (0-2); Color Urine Yellow; Epithelial Cell Urine Auto 0-2 /hpf (0-2); Glucose Urine UA Negative (Negative); Ketones Urine Negative (Negative); Leukocyte Esterase Urine Negative (Negative); Nitrite Urine Negative (Negative); Protein Urine Trace (Negative); RBC Urine Automated 0-2 /hpf (0-2); Specific Gravity Urine 1.019 (1.000-1.030); Urobilinogen Urine Negative (Negative); WBC Urine Automated 0-5 /hpf (0-5); pH Urine 5.5 (4.5-7.5)
--- NOTE | 2024-09-12 17:07 | Communication Note ---
Date of Service: September 12, 2024 Urine studies not c/w severe dehydration >> will proceed w/ urea, salt tabs, IV lasix low dose w/ K >> orders in; hospitalist updated.
[2024-09-12] MEDS: POLYETHYLENE (MIRALAX) 17 GM PACK PO SCH (20:06)
[2024-09-12] MEDS: UREA (UREA-NA) 15 GM PACK PO SCH (20:06)
[2024-09-12] MEDS: SODIUM CHLORIDE 1 GM TABLET PO SCH (20:07)
[2024-09-12] MEDS: POTASSIUM CHLORIDE 10 MEQ TABCR PO SCH (20:07)
[2024-09-12] MEDS: DOCUSATE SODIUM 100 MG CAP PO SCH (20:07)
[2024-09-13 06:25] LABS: Hematocrit (blood only) 35.4 % (42.0-52.0); Hemoglobin 11.9 g/dl (14.0-18.0); Mean Corpuscular Hemoglobin 26.7 pg (25.0-34.0); Mean Corpuscular Hgb Conc 33.6 g/dL (32.0-36.0); Mean Corpuscular Volume 79.4 fL (80.0-100.0); Mean Platelet Volume 9.5 fL (9.4-12.4); Platelet Count 361 K/uL (130-400); RDW Coefficient of Variation 12.3 % (11.5-14.5); RDW Standard Deviation 35.1 fL (36.4-46.3); Red Blood Count 4.46 M/uL (4.70-6.10); White Blood Count 5.57 K/ul (4.8-10.8)
[2024-09-13 07:03] LABS: Bilirubin,Total 0.6 mg/dl (0.2-1.0); Total Protein 7.6 gm/dl (6.0-8.3)
[2024-09-13 07:12] LABS: Albumin Globulin Ratio 0.6 (0.9-2); Albumin Level 2.9 gm/dl (3.4-5.0); Calcium 8.5 mg/dl (8.6-10.3); Globulin 4.7 gm/dl (2.5-4.0); Magnesium 1.8 mg/dl (1.7-2.4); Potassium 4.6 mmol/L (3.5-5.1)
[2024-09-13 07:18] LABS: BUN Creatinine Ratio 22.2 (10-20); Creatinine Clr Calc Pharmacy 144.2 ml/min; Phosphorus 3.5 mg/dl (2.5-4.9)
--- NOTE | 2024-09-13 07:25 | XRay Report ---
EXAM: XR chest 1V portable CLINICAL HISTORY: Follow-up. TECHNIQUE: An X-ray image of the chest is obtained in AP projection. COMPARISON: 09/12/2024. FINDINGS: Pulmonary Parenchyma: Interval stable, small left pneumothorax with chest tube in situ within the air pocket. Homogeneous opacification of left lower zone. Rest of the lungs are clear and well-expanded with no pulmonary infiltrates or pleural effusion. Heart and Mediastinum: Heart size and shape are normal. No mediastinal widening or masses. No hilar or mediastinal lymphadenopathy. Bony Thorax: Bony thorax appears intact without fractures or deformities. Soft Tissues: Soft tissues overlying the chest wall are unremarkable. IMPRESSION: 1. Interval unchanged, small left pneumothorax with chest tube in situ. 2. Interval unchanged, homogeneous opacification of left lower zone. could be re-expansion pulmonary edema. 3. Comparing the previous x-ray dated 09/12/2024, the findings remain unchanged. Electronically signed by Darren Patrick 09-13-2024 07:25 AM
[2024-09-13] MEDS: FAMOTIDINE 20 MG TAB PO PRN (07:37)
[2024-09-13] MEDS: FUROSEMIDE INJ 20 MG/2 ML VIAL IV SCH ×2 (07:38→11:35)
--- NOTE | 2024-09-13 08:25 | Hospitalist Progress Note ---
Date of Service September 13, 2024 Assessment & Plan (1) Loculated pleural effusion: (2) Unintended weight loss: (3) Night sweats: (4) Tuberculosis high risk: Plan Mr. Gruber 29 yr old Martiniquais speaking gentleman admitted for moderate pleural effusion and high risk TB. He is from a [facility] facility with + PPD test, fever, cough, night sweats and weight loss over several months. He is being admitted for evaluation of moderate pleural effusion and rule out of Tuberculosis given high risk individual. 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, PPD + #Left loculated pleural effusion pending AFB cultures s/p pigtail placement 09/11 MIST 2 protocol started on 09/11 pt from [facility] following: plan to move left pigtail 09/13 Plan for ID consult for therapy imitation given high risk -continue CTX -follow AFB studies and fluid ADA -ordered HIV continue air bourne precautions #Hyponatremia suspect SIADH iso TB serum osmo 267, urine [address] Zhang: continue FR 1200 continue urea, increased 30mg bid salt tablets 2gm bid started lasix started and increased to 30mg IV lasix q8 in addiciton to NS at 50ml/hr for 1 L BMP in afternoon and am #Transaminitis *improving no active gi concerns at this time #microcytic anemia iron deficient on labs continue ferrous sulfate daily #Constipation no BM since admission laxative x 1 continue stool softener #moderate protein familia malnutrition bmi 19.4 albumin 2.9 senior accounts payable clerk consulted DVT ppx: scds Admission and Anticipated Discharge Date Admission Date: September 10, 2024 Subjective Reports no bowel movement in 5 days Used telemedicine digital media producer in Martiniquais--denies any new symptoms, reports eagerness for final treatment denies any chest pain, sob, or other acute concerns Physical Exam Constitutional: WD/WN, vitals as above Respiratory: normal respiratory effort, lungs clear to auscultation left pigtail in place Cardiovascular: RRR, no murmur, no edema Gastrointestinal (Abdomen): normal bowel sounds, soft, nontender, no hepatosplenomegaly Results & Data Results & Data Vital Signs (Past 12 Hours) Vital Signs Temp Pulse Resp BP Pulse Ox O2 Del Method 09/13/24 07:34 37.6 C H 87 14 109/67 96 Room Air Laboratory Results Short CBC 09/13/24 Range/Units 05:27 WBC 5.57 (4.8-10.8) K/ul Hgb 11.9 L (14.0-18.0) g/dl Hct 35.4 L (42.0-52.0) % Plt Count 361 (130-400) K/uL BMP 09/12/24 09/13/24 16:07 05:27 Sodium 127 L 124 L Potassium 4.2 4.6 Chloride 95 L 93 L Carbon Dioxide 25 23 BUN 13 16 Creatinine 0.79 0.72 Glucose 106 H 114 H Calcium 8.7 8.5 L Liver Function 09/13/24 Range/Units 05:27 Total Bilirubin 0.6 (0.2-1.0) mg/dl AST 35 (13-39) U/L ALT 57 H (7-52) U/L Alkaline Phosphatase 74 (34-104) U/L Albumin 2.9 L (3.4-5.0) gm/dl Urine 09/12/24 Range/Units Unknown Urine Color Yellow Urine Appearance Clear (Clear) Urine pH 5.5 (4.5-7.5) Ur Specific [place] 1.019 (1.000-1.030) Urine Protein Trace H (Negative) Urine Glucose (UA) Negative (Negative) Medications Administered Home Medications Medication Instructions Recorded Confirmed Last Taken guaifenesin 100 mg/5 mL oral 200 mg PO Q4H PRN Cough/Congestion 09/10/24 09/10/24 Unknown liquid (Kirsty-Tussin) Active Medications Generic Name Dose Route Start Last Admin Trade Name Ajq PRN Reason Stop Dose Admin Acetaminophen 650 mg 09/10/24 16:25 09/13/24 08:27 Acetaminophen 325 Mg Tab PO 10/10/24 16:24 650 mg Q4H PRN Administration pain/fever Docusate Sodium 100 mg 09/12/24 21:00 09/13/24 07:37 Docusate Sodium 100 Mg Cap PO 10/12/24 20:59 100 mg BID ELAYNE Administration Famotidine 20 mg 09/10/24 16:25 09/13/24 07:37 Famotidine 20 Mg Tab PO 10/10/24 16:24 20 mg DAILY PRN Administration Heartburn Ferrous Sulfate 325 mg 09/12/24 09:00 09/13/24 07:37 Ferrous Sulfate 325 Mg Tab PO 10/12/24 08:59 325 mg QAM ELAYNE Administration Furosemide 30 mg 09/13/24 10:10 09/13/24 13:41 Furosemide Inj 20 Mg/2 Ml Vial IV 10/13/24 10:09 30 mg Q8 ELAYNE Administration Ceftriaxone Sodium 2,000 mg in 50 mls @ 100 mls/hr 09/11/24 12:00 09/13/24 12:04 Rocephin IV 09/16/24 11:59 Infused Q24H ELAYNE Infusion Sodium Chloride 1,000 mls @ 50 mls/hr 09/13/24 10:15 09/13/24 11:35 Nss IV 09/14/24 06:14 50 mls/hr .Q20H ELAYNE Administration Melatonin 6 mg 09/10/24 21:00 09/12/24 20:06 Melatonin 3 Mg Tab PO 10/10/24 20:59 6 mg HS PRN Administration Sleep Polyethylene Glycol 17 gm 09/12/24 19:30 09/13/24 07:38 Polyethylene (Miralax) 17 Gm Pack PO 10/12/24 19:29 17 gm DAILY ELAYNE Administration Potassium Chloride 10 meq 09/12/24 21:00 09/13/24 07:36 Potassium Chloride 10 Meq Tabcr PO 10/12/24 20:59 10 meq BID ELAYNE Administration Sodium Chloride 2 gm 09/12/24 21:00 09/13/24 07:37 Sodium Chloride 1 Gm Tablet PO 10/12/24 20:59 2 gm BID ELAYNE Administration
--- NOTE | 2024-09-13 10:10 | Nephrology Progress Note ---
Date of Service September 13, 2024 Assessment & Plan Admission and Anticipated Discharge Date Admission Date: September 10, 2024 Subjective (1) Hyponatremia: Likeliest SIADH d/t lung disease; however hypovolemic hyponatremia also a clinical possibility. He is 4.1 L negative on the admission. Na has been dropping everyday and now down to 124 uOsm and sOsm respectively 09/12 881, 267. urine osm of 881 signifies a very dense SIADH with maybe added component of volume depletion. he looks very malnourished Will need a much bigger dose of IV lasix to break this high urine osm. raise to 30 iv q8hr. We have to see that the Urine osm is much lower to have a rise in serum na Also BP is lowish and somewhat suggestive of volume depletion so also give NS at 50ml/hr for 1000 ml. Raise urea to 30 bid Continue Salt tab 2 gm bid. FFR restriction to 1500 ml/day suggest power press operator eval w/ target 70 gm daily protein intake, since urea not likely available after d/c maintain K 4 so Na can correct Care coordinated w/ Dr Irving with Update in management, repeat BMP we are in agreement. (2) Tuberculosis high risk: here for TB r/o; pulm following -AFB x 3 sputum pending; AFB pending pl fluid -blood cxs and sputum cxs NGTD -ID c/s pending S---Looks weak and thin. Does not answer any questions Physical Exam Constitutional: well developed, + thin and cooperative; no acute distress and not ill appearing (but appears tired) Eyes: EOM intact bilaterally ENMT: Mouth: + dry oral mucous membranes (markedly so) Respiratory: normal respiratory effort Auscultation: + diminished lung sounds (L base; chest tube present) and + wheezes (R insp) Cardiovascular: RRR, no murmur, no edema Gastrointestinal (Abdomen): Inspection/Auscultation: normal bowel sounds Percussion/Palpation: abdomen soft; abdomen nontender Musculoskeletal: Extremities: strength 5/5 throughout Skin: no rashes, warm and dry Neurologic: parmar, fluent though limited speech, no tremor; tired but not lethargic Results & Data Vital Signs (Past 12 Hours) Vital Signs Temp Pulse Resp BP Pulse Ox O2 Del Method 09/13/24 07:34 37.6 C H 87 14 109/67 96 Room Air 09/13/24 07:15 Room Air
--- NOTE | 2024-09-13 10:14 | Pulmonology Progress Note ---
Date of Service September 13, 2024 Assessment & Plan (1) Pleural effusion: (2) Mediastinal shift: (3) Loculated pleural effusion: (4) Night sweats: (5) Unintended weight loss: (6) Shortness of breath: Plan CT chest 09/10/2024 personally reviewed: Large left-sided pleural effusion with mediastinal shift to the right Compressive atelectasis of the left lower lobe No significant mediastinal lymphadenopathy Chest X-ray 09/12/2024: Decrease in left pleural effusion with small pneumothorax likely entrapped lung. Chest X-ray : minimal left pleural effusion with small left pneumothorax likely ex vacuo. -- Moderate left-sided loculated pleural effusion Differential includes infectious versus noninfectious Tuberculosis-differential given he is from [facility], malignancy cannot be ruled out especially given questionable pleural mass on the bedside ultrasound Bedside ultrasound on 09/11/2024 showed loculations in the left pleural cavity. MIST 2 protocol initiated 09/11/2024 Stop 09/13/2024. Gold QuantiFERON positive AFB from sputum and pleural fluid negative. S/p pigtail catheter placement 09/11/2024, exudative, lymphocytic, cytology negative for malignancy. Plan to discontinue chest tube this afternoon. Pleural fluid: LDH 518, protein 6.2 Follow-up pleural adenosine deaminase. Pending. Procalcitonin 0.12 Respiratory BioFire negative for everything Has lost approximately 8 pounds unintentionally in the recent past, denies any night sweats No known exposure to tuberculosis. Has family [facility]. Denies any history of hepatitis or HIV Has never been treated for tuberculosis. Admission and Anticipated Discharge Date Admission Date: September 10, 2024 Supervising Physician Co-Signing Physician Notes I saw and evaluated the patient with CAROL Berman, and agree with findings and plan as documented in the note. Patient seen and examined at bedside. No acute distress, no adverse events overnight Denies any chest pain, no shortness of breath Still coughing, bringing up clear phlegm. Denies any hemoptysis No discomfort at the site of the chest tube Appetite is fair, no nausea or vomiting Constitutional: No acute distress HEENT: EOMI, PERRLA, no subcutaneous emphysema Respiratory system: Decreased air entry in the left side, no wheeze, rhonchi, positive crackles on the left CVS: S1-S2 positive, no murmurs or gallops Abdomen: Soft, nontender, nondistended, positive bowel sounds x4 Extremities: +2 pulses bilaterally radialis/ dorsalis pedis, no cyanosis, no edema Neuro: Awake alert oriented x3 Psych: Normal mood and affect G/U: No Solis Plan: Chest x-ray from today on personal review shows small left basilar pneumothorax likely representing entrapped lung Given the significant improvement, we will discontinue the chest tube today. Finish the course of Rocephin for 5 days AFB sputum has been negative x 3 Follow up pleural fluid adenosine deaminase Case was discussed with RN at bedside and primary team Please note the above document was generated using voice recognition software. It may contain grammatical, syntax or spelling errors.Any formal questions or concerns about the content, text or information contained within the body of this dictation should be directly addressed to the provider for clarification. Subjective "My breathing feels fine my stomach hurts though." Patient chest tube remains at -20cm of suction. CXR this am showed improvement of left pleural effusion wih expansion of lung. There is a small pneumothorax likely ex vacuo noted in the left lower lobe. Plan to discontinue MIST 2 protocol and discontinue chest tube. Positive GOLD quantiferon. AFB culture from sputum and pleural fluid negative. Awaiting pleural adenosine deaminase for confirmation. Review of Systems 2 Review of Systems: All systems reviewed & are unremarkable except as noted in HPI & below Physical Exam 2 Physical Exam: Constitutional: No acute distress HEENT: EOMI, PERRLA Respiratory system: Decreased air entry in the left side, no wheeze, rhonchi, positive crackles on the left CVS: S1-S2 positive, no murmurs or gallops Abdomen: Soft, nontender, nondistended, positive bowel sounds x4 Extremities: +2 pulses bilaterally radialis/ dorsalis pedis, no cyanosis, no edema Neuro: Awake alert oriented x3 Psych: Normal mood and affect G/U: No Solis Skin: no rashes, warm and dry Lymphatic: no cervical or axillary lymphadenopathy Results & Data Results & Data Vital Signs (Past 12 Hours) Vital Signs Temp Pulse Resp BP Pulse Ox O2 Del Method 09/13/24 07:34 37.6 C H 87 14 109/67 96 Room Air 09/13/24 07:15 Room Air Laboratory Results 09/13/24 05:27 09/13/24 05:27 Abnormal Lab Results 09/12/24 09/12/24 09/13/24 16:07 Unknown 05:27 WBC 5.57 RBC 4.46 L Hgb 11.9 L Hct 35.4 L MCV 79.4 L MCH 26.7 MCHC 33.6 RDW Std Deviation 35.1 L RDW Coeff of Luigi 12.3 Plt Count 361 MPV 9.5 Sodium 127 L 124 L Potassium 4.2 4.6 Chloride 95 L 93 L Carbon Dioxide 25 23 Anion Gap 7 8 BUN 13 16 Creatinine 0.79 0.72 Est Cr Clr Drug Dosing 131.5 144.2 eGFR 121.80 125.26 BUN/Creatinine Ratio 16.5 22.2 H Glucose 106 H 114 H Calcium 8.7 8.5 L Phosphorus 3.5 Magnesium 1.8 Total Bilirubin 0.6 AST 35 ALT 57 H Alkaline Phosphatase 74 Total Protein 7.6 Albumin 2.9 L Globulin 4.7 H Albumin/Globulin Ratio 0.6 L Urine Color Yellow Urine Appearance Clear Urine pH 5.5 Ur Specific [place] 1.019 Urine Protein Trace H Urine Glucose (UA) Negative Urine Ketones Negative Urine Blood Negative Urine Nitrite Negative Urine Bilirubin Negative Urine Urobilinogen Negative Ur Leukocyte Esterase Negative Urine WBC (Auto) 0-5 Urine RBC (Auto) 0-2 U Hyaline Cast (Auto) 0-2 U Epithel Cells (Auto) 0-2 Urine Bacteria (Auto) None Seen Urine Sodium 52 Urine Potassium 76.4 Urine Chloride 105 Diagnostic Findings Chest X-Ray 09/13/24 07:00 EXAM: XR chest 1V portable CLINICAL HISTORY: Follow-up. TECHNIQUE: An X-ray image of the chest is obtained in AP projection. COMPARISON: 09/12/2024. FINDINGS: Pulmonary Parenchyma: Interval stable, small left pneumothorax with chest tube in situ within the air pocket. Homogeneous opacification of left lower zone. Rest of the lungs are clear and well-expanded with no pulmonary infiltrates or pleural effusion. Heart and Mediastinum: Heart size and shape are normal. No mediastinal widening or masses. No hilar or mediastinal lymphadenopathy. Bony Thorax: Bony thorax appears intact without fractures or deformities. Soft Tissues: Soft tissues overlying the chest wall are unremarkable. IMPRESSION: 1. Interval unchanged, small left pneumothorax with chest tube in situ. 2. Interval unchanged, homogeneous opacification of left lower zone. could be re-expansion pulmonary edema. 3. Comparing the previous x-ray dated 09/12/2024, the findings remain unchanged. Electronically signed by Darren Patrick 09-13-2024 07:25 AM PG Care Time/CCT Total # of Minutes Spent Total Time Spent with Patient: Total time spent is greater than 50% in coordination of care (as documented) at patient's floor/unit and/or counseling patient: Coding Level of Care Code 28205 SUB INP/OBS CARE 2/35MIN Diagnoses Pleural effusion J90 Mediastinal shift R93.89 Loculated pleural effusion J90 Night sweats R61 Unintended weight loss R63.4 Shortness of breath R06.02
[2024-09-13] MEDS: SODIUM CHLORIDE 0.9% 1,000 ML IV SCH (11:35)
[2024-09-13] MEDS: bisacodyL 5 MG TABEC PO ONE (13:41)
--- NOTE | 2024-09-13 13:44 | Infectious Disease Consult ---
Date of Service September 13, 2024 Telehealth Information I performed this visit using a real-time telehealth connection between my location and the patients location ([facility]). After connecting through interactive tele-video, patient was identified by name and date of and/or wristband check.Patient (or authorized healthcare c s s representative) was informed that this was a telemedicine visit and it was being conducted confidentially over secure lines. My office door was closed and no one else was present in the room with me.Patient (or authorized healthcare c s s representative) provided consent to proceed with the visit, expressed an understanding of privacy and security of the telemedicine visit, and gave permission to have a hospital c s s representative in the room in order to assist with the visit and to conduct portions of the visit, as needed. I informed the patient (or authorized healthcare c s s representative) that I reviewed their record and presented the opportunity for them to ask any questions regarding the visit today. The patient agreed to participate. Assessment & Plan (1) Loculated pleural effusion: (2) Tuberculosis high risk: Plan 1-year-old male presenting with symptoms and radiological findings suggestive of a high risk for tuberculosis (TB), including a positive PPD test, fever, cough, night sweats, and weight loss. The CT chest revealed a large left pleural effusion with compressive atelectasis of the left lower lung lobe. The pleural fluid analysis is exudative and lymphocytic, with cytology negative for malignancy. The patient is currently status post pigtail catheter placement with a decrease in pleural effusion and a small pneumothorax noted on follow-up imaging. The patient is hemodynamically stable and is currently on ceftriaxone. 1.Maintain ceftriaxone until culture results are available to guide further antibiotic management. 2.Await results of pleural fluid ADA and sputum studies for TB. 3.Send HIV test to evaluate for potential co-infection. History of Present Illness History of Present Illness 29-year-old male who is coming with positive PPD test, fever, cough, night sweats, weight loss over several months. In ED, he was hemodynamically stable. CT chest revealed large left pleural effusion with near complete compressive atelectasis of left lower lung lobe. He was evaluated by Pulmonology, currently status post pigtail catheter placement on 09/11/2024, exudative, lymphocytic, cytology negative for malignancy, pleural fluid LDH 518, protein 6.2 ADA pending, respiratory BioFire negative, procalcitonin 0.12. Chest x-ray on 09/12 decrease in left pleural effusion with small pneumothorax likely entrapped lung. Currently he is on ceftriaxone.Patient is originally from [place] Allergies Allergy/AdvReac Type Severity Reaction Status Date / Time No Known Allergies Allergy Unverified 09/10/24 11:50 Home Medications Medication Instructions Recorded Confirmed Type guaifenesin 100 mg/5 mL oral 200 mg PO Q4H PRN Cough/Congestion 09/10/24 09/10/24 History liquid (Kirsty-Tussin) Patient History Medical History No pertinent past medical history Surgical History No pertinent past surgical history Social History Smoking Status: Never smoker Hx Alcohol Use: No Hx Substance Use: No Preferred Language: Tamazight Communication Ability: Impaired Communication Tools: IPad Editor Index Required: No Current Living Situation: Other Current Living Situation Comment: [facility] Feels Safe at Home: Yes Review of Systems Negative except mentioned in HPI Physical Exam could not be done as this was a tele visit Results & Data Vital Signs (Past 12 Hours) Vital Signs Temp Pulse Resp BP Pulse Ox O2 Del Method 09/13/24 07:34 37.6 C H 87 14 109/67 96 Room Air 09/13/24 07:15 Room Air Laboratory Results 09/10/24 18:50 Gram Stain - Final Pleural Fluid Aerobic and Anaerobic Culture - Preliminary No growth to date. 09/12/24 Unknown Acid Fast Bacilli Smear - Final Sputum, Expectorated Acid Fast Bacilli Culture - Pending 09/11/24 Unknown Acid Fast Bacilli Smear - Final Sputum, Expectorated Acid Fast Bacilli Culture - Pending 09/10/24 20:45 Acid Fast Bacilli Smear - Final Sputum, Expectorated Acid Fast Bacilli Culture - Pending 09/10/24 18:50 Acid Fast Bacilli Smear - Final Pleural Fluid Acid Fast Bacilli Culture - Pending 09/10/24 09:33 Aerobic Blood Culture - Preliminary Blood No growth in Aerobic bottle after 48 hours. Anaerobic Blood Culture - Preliminary No growth in Anaerobic bottle after 48 hours. 09/10/24 09:33 Aerobic Blood Culture - Preliminary Blood No growth in Aerobic bottle after 48 hours. Anaerobic Blood Culture - Final 09/13/24 09/12/24 09/12/24 05:27 Unknown 16:07 WBC 5.57 RBC 4.46 L Hgb 11.9 L Hct 35.4 L MCV 79.4 L MCH 26.7 MCHC 33.6 RDW Std Deviation 35.1 L RDW Coeff of Luigi 12.3 Plt Count 361 MPV 9.5 Sodium 124 L 127 L Potassium 4.6 4.2 Chloride 93 L 95 L Carbon Dioxide 23 25 Anion Gap 8 7 BUN 16 13 Creatinine 0.72 0.79 Est Cr Clr Drug Dosing 144.2 131.5 eGFR 125.26 121.80 BUN/Creatinine Ratio 22.2 H 16.5 Glucose 114 H 106 H Calcium 8.5 L 8.7 Phosphorus 3.5 Magnesium 1.8 Total Bilirubin 0.6 AST 35 ALT 57 H Alkaline Phosphatase 74 Total Protein 7.6 Albumin 2.9 L Globulin 4.7 H Albumin/Globulin Ratio 0.6 L Urine Color Yellow Urine Appearance Clear Urine pH 5.5 Ur Specific [place] 1.019 Urine Protein Trace H Urine Glucose (UA) Negative Urine Ketones Negative Urine Blood Negative Urine Nitrite Negative Urine Bilirubin Negative Urine Urobilinogen Negative Ur Leukocyte Esterase Negative Urine WBC (Auto) 0-5 Urine RBC (Auto) 0-2 U Hyaline Cast (Auto) 0-2 U Epithel Cells (Auto) 0-2 Urine Bacteria (Auto) None Seen Urine Sodium 52 Urine Potassium 76.4 Urine Chloride 105 Diagnostic Findings Chest X-Ray 09/13/24 07:00 EXAM: XR chest 1V portable CLINICAL HISTORY: Follow-up. TECHNIQUE: An X-ray image of the chest is obtained in AP projection. COMPARISON: 09/12/2024. FINDINGS: Pulmonary Parenchyma: Interval stable, small left pneumothorax with chest tube in situ within the air pocket. Homogeneous opacification of left lower zone. Rest of the lungs are clear and well-expanded with no pulmonary infiltrates or pleural effusion. Heart and Mediastinum: Heart size and shape are normal. No mediastinal widening or masses. No hilar or mediastinal lymphadenopathy. Bony Thorax: Bony thorax appears intact without fractures or deformities. Soft Tissues: Soft tissues overlying the chest wall are unremarkable. IMPRESSION: 1. Interval unchanged, small left pneumothorax with chest tube in situ. 2. Interval unchanged, homogeneous opacification of left lower zone. could be re-expansion pulmonary edema. 3. Comparing the previous x-ray dated 09/12/2024, the findings remain unchanged. Electronically signed by Darren Patrick 09-13-2024 07:25 AM
[2024-09-13 17:30] LABS: Calcium 8.9 mg/dl (8.6-10.3); Potassium 4.1 mmol/L (3.5-5.1)
[2024-09-13 17:35] LABS: BUN Creatinine Ratio 24.5 (10-20); Creatinine Clr Calc Pharmacy 110.5 ml/min
[2024-09-13] MEDS: UREA (UREA-NA) 15 GM PACK PO SCH (21:41)
--- NOTE | 2024-09-13 23:15 | Communication Note ---
Date of Service: September 13, 2024 Patient with persistent fever despite ongoing ceftriaxone Rx for complicated pneumonia. No diarrhea symptoms. Add doxycycline to regimen.
[2024-09-13] MEDS: ACETAMINOPHEN 325 MG TAB PO STA (23:40)
[2024-09-13] MEDS: MAGNESIUM SULFATE / D5W 1 GM/100 ML BAG IV ONE (23:46)
[2024-09-13] MEDS: DOXYCYCLINE HYCLATE 100 MG in DEXTROSE 5% MINI-B 100 ML IV STA (23:46)
[2024-09-14] MEDS: ACETAMINOPHEN 325 MG TAB PO STA (02:12)
[2024-09-14 05:38] LABS: Hematocrit (blood only) 39.4 % (42.0-52.0); Mean Corpuscular Hemoglobin 26.5 pg (25.0-34.0); Mean Corpuscular Volume 80.2 fL (80.0-100.0); Mean Platelet Volume 9.6 fL (9.4-12.4); Platelet Count 330 K/uL (130-400); RDW Coefficient of Variation 12.3 % (11.5-14.5); RDW Standard Deviation 35.6 fL (36.4-46.3); Red Blood Count 4.91 M/uL (4.70-6.10); White Blood Count 6.61 K/ul (4.8-10.8)
[2024-09-14 05:52] LABS: Calcium 8.7 mg/dl (8.6-10.3); Potassium 4.9 mmol/L (3.5-5.1)
[2024-09-14 05:58] LABS: Creatinine Clr Calc Pharmacy 109.3 ml/min
[2024-09-14] MEDS: DOXYCYCLINE HYCLATE 100 MG CAP PO SCH (07:18)
--- NOTE | 2024-09-14 08:42 | Procedure Note ---
Procedure Note Date of Service September 13, 2024 Procedure: Pigtail chest tube removal Guide Tour: Dr. Sg Pisano Indication: Resolved pleural effusion Consent: Verbal consent obtained from the patient Anesthesia: None Procedure: Under sterile measures and aseptic precaution, dressing of the left-sided chest tube was removed Wire was unwound, chest tube was removed on exhalation. It was found to be intact. Vaseline gauze followed by 4 x 4 and Medipore tape was used to dress. The patient tolerated the procedure without obvious complication Complications: None Blood loss: None [facility] [place] Codes (Charges) Pulmonary/Thoracic Procedure 1: Pulmonary and Thoracic: 93571 Remove lung catheter Coding CPT Codes Pulmonary/Thoracic - Pulmonary and Thoracic: 04089 Remove lung catheter ([id number]) Additional Codes Date of Service (PG.SURGERY)
--- NOTE | 2024-09-14 08:47 | Pulmonology Progress Note ---
Date of Service September 14, 2024 Assessment & Plan (1) Pleural effusion: (2) Mediastinal shift: (3) Loculated pleural effusion: (4) Night sweats: (5) Unintended weight loss: (6) Shortness of breath: Plan CT chest 09/10/2024 personally reviewed: Large left-sided pleural effusion with mediastinal shift to the right Compressive atelectasis of the left lower lobe No significant mediastinal lymphadenopathy Chest X-ray 09/12/2024: Decrease in left pleural effusion with small pneumothorax likely entrapped lung. Chest X-ray : minimal left pleural effusion with small left pneumothorax likely ex vacuo. -- Moderate left-sided loculated pleural effusion Differential includes infectious versus noninfectious Tuberculosis-differential given he is from [facility], malignancy cannot be ruled out especially given questionable pleural mass on the bedside ultrasound Bedside ultrasound on 09/11/2024 showed loculations in the left pleural cavity. MIST 2 protocol initiated 09/11/2024 Stop 09/13/2024. Gold QuantiFERON positive, Adenosine deaminase 58.8 U/L, level greater than 40 U/L with clinical picture is usually diagnostic for TB pleural effusion AFB from sputum and pleural fluid negative. S/p pigtail catheter placement 09/11/2024, exudative, lymphocytic, cytology negative for malignancy. Chest tube discontinued 09/13/2024 Pleural fluid: LDH 518, protein 6.2 Procalcitonin 0.12 Respiratory BioFire negative for everything Has lost approximately 8 pounds unintentionally in the recent past, denies any night sweats No known exposure to tuberculosis. Has family [facility]. Denies any history of hepatitis or HIV HIV negative on 09/13/2024 Has never been treated for tuberculosis. Plan: Chest x-ray completed on personal review does not show any significant change from before, left lower hydropneumothorax persists with reaccumulation of some fluid Adenosine deaminase 58.8 U/L, level greater than 40 U/L with clinical picture is usually diagnostic for TB pleural effusion Would recommend to get health department get involved. Start the patient on tuberculosis treatment regimen Will defer to infectious disease for the same. Finish the course of Rocephin for 5 days AFB sputum has been negative x 3, usually to take the patient off isolation the AFB smear has to be negative x 3 which is the case and patient. I will defer the decision to take the patient off isolation to infectious control as well as infectious disease Case was discussed with RN at bedside and primary team No further recommendation from pulmonary perspective, will sign off Please call directly with any questions Please note the above document was generated using voice recognition software. It may contain grammatical, syntax or spelling errors.Any formal questions or concerns about the content, text or information contained within the body of this dictation should be directly addressed to the provider for clarification. Admission and Anticipated Discharge Date Admission Date: September 10, 2024 Subjective Patient seen and examined at bedside. No acute distress, no dose events overnight He was saturating well on room air Denied any chest pain No nausea or vomiting Appetite is fair Review of Systems 2 Review of Systems: All systems reviewed & are unremarkable except as noted in Subjective Physical Exam 2 Physical Exam: Constitutional: No acute distress HEENT: EOMI, PERRLA Respiratory system: Decreased air entry in the left side, no wheeze, rhonchi, positive crackles on the left CVS: S1-S2 positive, no murmurs or gallops Abdomen: Soft, nontender, nondistended, positive bowel sounds x4 Extremities: +2 pulses bilaterally radialis/ dorsalis pedis, no cyanosis, no edema Neuro: Awake alert oriented x3 Psych: Normal mood and affect G/U: No Solis Skin: no rashes, warm and dry Lymphatic: no cervical or axillary lymphadenopathy Results & Data Results & Data Vital Signs (Past 12 Hours) Vital Signs Temp Pulse Resp BP Pulse Ox O2 Del Method 09/14/24 07:22 36.7 C 96 H 16 103/68 97 Room Air 09/14/24 05:35 38.1 C H 09/14/24 01:49 38.6 C H 09/13/24 23:00 39.0 C H 09/13/24 21:33 38.3 C H 110 H 16 116/68 99 Room Air 09/13/24 21:30 Room Air Laboratory Results 09/14/24 05:30 09/14/24 05:30 PG Care Time/CCT Total # of Minutes Spent Total Time Spent with Patient: Total time spent is greater than 50% in coordination of care (as documented) at patient's floor/unit and/or counseling patient: Coding Level of Care Code 24109 SUB INP/OBS CARE 2/35MIN Diagnoses Pleural effusion J90 Mediastinal shift R93.89 Loculated pleural effusion J90 Night sweats R61 Unintended weight loss R63.4 Shortness of breath R06.02
--- NOTE | 2024-09-14 09:15 | XRay Report ---
XR chest 1V portable CLINICAL HISTORY: f/u COMPARISON STUDY: 09/13/2024 FINDINGS: The left chest tube has been removed. There is stable reticular and patchy nodular opacity at the left lung base. There is interval hazy opacity at the site of the prior small lateral left bas ilar pneumothorax on the previous exam, likely small amount of interval pleural fluid with trace resi dual pneumothorax. There is no increase in size of the pneumothorax. IMPRESSION: Post chest tube removal as above. No increase in size of the pneumothorax. Otherwise as described. ACT 112: Negative or not required by law. Electronically signed by: Param Dubon M.D. 09/14/2024 9:13 AM
[2024-09-14] MEDS: ADVANCED PROBIOTIC 625 MG CAPSULE PO SCH (11:13)
[2024-09-14] MEDS: CEROVITE ADV FORMULA TAB PO SCH (11:13)
--- NOTE | 2024-09-14 12:04 | Nephrology Progress Note ---
Date of Service September 14, 2024 Assessment & Plan Admission and Anticipated Discharge Date Admission Date: September 10, 2024 Subjective Subjective (1) Hyponatremia: Likeliest SIADH d/t lung disease; however hypovolemic hyponatremia also a clinical possibility. He is 4.1 L negative on the admission. Na has been dropping everyday and dropped to 124 and then went up a bit to 127--now stalled there. uOsm and sOsm respectively 09/12 881, 267. urine osm of 881 signifies a very dense SIADH with maybe added component of volume depletion. he looks very malnourished and has lost a lot of weight Will need a much bigger dose of IV lasix to break this high urine osm. raise to 30 iv q8hr. We have to see that the Urine osm is much lower to have a rise in serum na--check urine osm today on Iv lasix Also BP is lowish and somewhat suggestive of volume depletion so also give NS at 75ml/hr for another 1500 ml. BUN rising little too fast so lower urea back to 15 bid. Continue Salt tab 2 gm bid. 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 Would make sure not to use tolvaptan in his case given high chance of LFT issues with TB meds Care coordinated w/ Dr Pedro with Update in management. (2) Tuberculosis --reviewed Pulm note and has TB and will be treated. S---Looks weak and thin. Does not answer any questions. made 2000 ml urine yesterday Physical Exam Constitutional: well developed, + thin and cooperative; no acute distress and not ill appearing (but appears tired) Eyes: EOM intact bilaterally ENMT: Mouth: + dry oral mucous membranes (markedly so) Respiratory: normal respiratory effort Auscultation: + diminished lung sounds (L base; chest tube present) and + wheezes (R insp) Cardiovascular: RRR, no murmur, no edema Gastrointestinal (Abdomen): Inspection/Auscultation: normal bowel sounds Percussion/Palpation: abdomen soft; abdomen nontender Musculoskeletal: Extremities: strength 5/5 throughout Skin: no rashes, warm and dry Neurologic: parmar, fluent though limited speech, no tremor; tired but not lethargic Results & Data Vital Signs (Past 12 Hours) Vital Signs Temp Pulse Resp BP Pulse Ox O2 Del Method 09/14/24 07:22 36.7 C 96 H 16 103/68 97 Room Air 09/14/24 07:15 Room Air 09/14/24 05:35 38.1 C H 09/14/24 01:49 38.6 C H
[2024-09-14] MEDS: SODIUM CHLORIDE 0.9% 1,000 ML IV SCH (12:43)
[2024-09-14] MEDS ORDERED: ETHAMBUTOL HCL 400 MG TAB PO SCH (13:30)
[2024-09-14] MEDS ORDERED: PYRAZINAMIDE 500 MG TABLET PO SCH (13:30)
--- NOTE | 2024-09-14 13:57 | Hospitalist Progress Note ---
Date of Service September 14, 2024 Assessment & Plan (1) Loculated pleural effusion: (2) Unintended weight loss: (3) Night sweats: (4) Tuberculosis high risk: Plan Mr. Gruber 29 yr old Kyrgyz speaking gentleman admitted for moderate pleural effusion and high risk TB. He is from a [facility] facility with + PPD test, fever, cough, night sweats and weight loss over several months. He is being admitted for evaluation of moderate pleural effusion and rule out of Tuberculosis given high risk individual. 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, PPD + #Left loculated pleural effusion pending AFB cultures s/p pigtail placement 09/11 - 09/13: F/u CXR w/ stable pneumothorax MIST 2 protocol started on 09/11 pt from [facility] ID evaled 09/13, ADA resulted 09/14, level 58.8 D/w Pulm who recommends antitubercular Rx per ID D/w ID, plan to dc antibiotics and start RIPE +pyridoxine. d/w pharmacist, tb meds dosed appropriate for the patient. f/u w/ ID on dc, await formal ID re-eval come weekdays. continue air bourne precautions, involve ELISA come weekdays. #Hyponatremia suspect SIADH iso TB serum osmo 267, urine [address] case [address] Zhang: on iv lasix, salt tab, Urea dose decreased. NS increased to 75 ml/hr. continue FR 1200 BMP in AM. #Transaminitis *improving no active gi concerns at this time #microcytic anemia iron deficient on labs continue ferrous sulfate daily #Constipation no BM since admission c/w bowel reg #moderate protein familia malnutrition bmi 19.4 albumin 2.9 emblem maker consulted DVT ppx: scds Admission and Anticipated Discharge Date Admission Date: September 10, 2024 Subjective Patient was seen and examined at bedside. Patient was lying in bed, on room air, NAD, resting comfortably. Patient denies any pain, reports eating okay, reports not going moving bowel in last few days, c/w bowel regimen. Patient reports being okay, denies pain or burning while passing urine. Patient denies chest pain. Physical Exam Physical Exam: Constitutional: WD/WN, vitals as a samy Respiratory: normal respiratory effort, lungs emily ar to auscultation left decreased breath sounds. occ lt crackles. Cardiovascular: RRR, no murmur, no edema Gastrointestinal ( Abdomen): normal bowel sound s, soft, nontender , no hepatosplenom egaly Results & Data Results & Data Vital Signs (Past 12 Hours) Vital Signs Temp Pulse Resp BP Pulse Ox O2 Del Method 09/14/24 07:22 36.7 C 96 H 16 103/68 97 Room Air 09/14/24 07:15 Room Air 09/14/24 05:35 38.1 C H
[2024-09-14] MEDS: POLYETHYLENE (MIRALAX) 17 GM PACK PO SCH (15:26)
[2024-09-14] MEDS: rifAMPin 300 MG CAPSULE PO SCH (15:27)
[2024-09-14] MEDS: ETHAMBUTOL HCL 400 MG TAB PO ONE (15:27)
[2024-09-14] MEDS: PYRIDOXINE HCL 50 MG TAB PO SCH (15:28)
[2024-09-14] MEDS: PYRAZINAMIDE 500 MG TABLET PO ONE (15:28)
[2024-09-14] MEDS: ISONIAZID 300 MG TAB PO SCH (15:29)
[2024-09-14] MEDS: UREA (UREA-NA) 15 GM PACK PO SCH (22:04)
[2024-09-15 06:38] LABS: Hematocrit (blood only) 33.1 % (42.0-52.0); Hemoglobin 10.7 g/dl (14.0-18.0); Mean Corpuscular Hemoglobin 26.4 pg (25.0-34.0); Mean Corpuscular Hgb Conc 32.3 g/dL (32.0-36.0); Mean Corpuscular Volume 81.7 fL (80.0-100.0); Mean Platelet Volume 9.6 fL (9.4-12.4); Platelet Count 303 K/uL (130-400); RDW Coefficient of Variation 12.2 % (11.5-14.5); RDW Standard Deviation 36.5 fL (36.4-46.3); Red Blood Count 4.05 M/uL (4.70-6.10)
[2024-09-15 06:54] LABS: Albumin Level 2.8 gm/dl (3.4-5.0); BUN Creatinine Ratio 36.8 (10-20); Bilirubin Direct 0.5 mg/dl (0-0.2); Calcium 8.5 mg/dl (8.6-10.3); Creatinine Clr Calc Pharmacy 119.4 ml/min; Magnesium 2.1 mg/dl (1.7-2.4); Phosphorus 3.8 mg/dl (2.5-4.9); Potassium 4.6 mmol/L (3.5-5.1); Total Protein 7.5 gm/dl (6.0-8.3)
[2024-09-15] MEDS: ETHAMBUTOL HCL 400 MG TAB PO SCH (07:10)
[2024-09-15] MEDS: PYRAZINAMIDE 500 MG TABLET PO SCH (07:13)
--- NOTE | 2024-09-15 13:08 | Hospitalist Progress Note ---
Date of Service September 15, 2024 Assessment & Plan (1) Loculated pleural effusion: (2) Unintended weight loss: (3) Night sweats: (4) Tuberculosis high risk: Plan Mr. Gruber 29 yr old Irish speaking gentleman admitted for moderate pleural effusion and high risk TB. He is from a [facility] facility with + PPD test, fever, cough, night sweats and weight loss over several months. He is being admitted for evaluation of moderate pleural effusion and rule out of Tuberculosis given high risk individual. 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, PPD + #Left loculated pleural effusion pending AFB cultures s/p pigtail placement 09/11 - 09/13: F/u CXR w/ stable pneumothorax MIST 2 protocol started on 09/11 pt from [facility] ID evaled 09/13, ADA resulted 09/14, level 58.8 D/w Pulm 09/14 who recommends antitubercular Rx per ID D/w ID 09/14, plan to dc antibiotics and start RIPE +pyridoxine. Monitor LFT d/w pharmacist 09/14, tb meds dosed appropriate for the patient. Await formal ID re-eval likely jessica f/u w/ ID on dc, await formal ID re-eval come week. continue air bourne precautions, involve ELISA and infection control come week. #Hyponatremia suspect SIADH iso TB serum osmo 267, urine 881 TSHwnl Nephro on boards, pt on ivf, diuresis, urea, Na tab continue FR 1200 BMP in AM. Na slightly better today. #Transaminitis *improving no active gi concerns at this time , needs close monitoring now he is on anti TB Rx. #microcytic anemia iron deficient on labs continue ferrous sulfate daily #Constipation no BM since admission c/w bowel reg #moderate protein familia malnutrition bmi 19.4 albumin 2.9 radio tower technician consulted DVT ppx: scds Admission and Anticipated Discharge Date Admission Date: September 10, 2024 Subjective Patient was seen and examined at bedside. Patient was lying in bed, on room air, NAD, resting comfortably. Patient denies any pain, reports eating okay, reports not going moving bowel in last few days, c/w bowel regimen. denies belly pain, non tender on exam. Patient reports being okay, denies pain or burning while passing urine. Patient denies chest pain. Physical Exam Physical Exam: Constitutional: WD/WN, vitals as a samy Respiratory: normal respiratory effort, lungs emily ar to auscultation left decreased breath sounds. occ lt crackles. Cardiovascular: RRR, no murmur, no edema Gastrointestinal ( Abdomen): normal bowel sound s, soft, nontender , no hepatosplenom egaly Results & Data Results & Data Vital Signs (Past 12 Hours) Vital Signs Temp Pulse Resp BP Pulse Ox O2 Del Method 09/15/24 07:50 Room Air 09/15/24 07:17 36.7 C 77 18 114/72 100 Room Air
--- NOTE | 2024-09-15 14:10 | Nephrology Progress Note ---
Date of Service September 15, 2024 Assessment & Plan Admission and Anticipated Discharge Date Admission Date: September 10, 2024 Subjective Subjective (1) Hyponatremia: Likeliest SIADH d/t lung disease; however hypovolemic hyponatremia also a clinical possibility. He is 4.1 L negative on the admission. Na has been dropping everyday and dropped to 124 and then went up a bit to 127--now stalled there. uOsm and sOsm respectively 09/12 881, 267. urine osm of 881 signifies a very dense SIADH with maybe added component of volume depletion. he looks very malnourished and has lost a lot of weight Will need a much bigger dose of IV lasix to break this high urine osm. raise to 30 iv q8hr. urine osm did drop to 300+ after iv lasix. Did give him NS yesterday for 1500 ml. na dropped to 124 on 09/13 but since then has gone up a bit to 128. Continue same for now. NS 1000 ml today at 50ml/hr BUN rising little too fast so lowered urea back to 15 bid. Continue Salt tab 2 gm bid. 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 Now on Anti TB drug therapy. FFR restriction to 1500 ml/day suggest foundry equipment mechanic eval w/ target 70 gm daily protein intake, since urea not likely available after d/c maintain K 4 so Na can correct Would make sure not to use tolvaptan in his case given high chance of LFT issues with TB meds Care coordinated w/ Dr Pedro with Update in management. (2) Tuberculosis --reviewed Pulm note and has TB and will be treated. S---Looks weak and thin. Does not answer any questions. made 2000 ml urine yesterday Physical Exam Constitutional: well developed, + thin and cooperative; no acute distress and not ill appearing (but appears tired) Eyes: EOM intact bilaterally ENMT: Mouth: + dry oral mucous membranes (markedly so) Respiratory: normal respiratory effort Auscultation: + diminished lung sounds (L base; chest tube present) and + wheezes (R insp) Cardiovascular: RRR, no murmur, no edema Gastrointestinal (Abdomen): Inspection/Auscultation: normal bowel sounds Percussion/Palpation: abdomen soft; abdomen nontender Musculoskeletal: Extremities: strength 5/5 throughout Skin: no rashes, warm and dry Neurologic: parmar, fluent though limited speech, no tremor; tired but not lethargic Results & Data Vital Signs (Past 12 Hours) Vital Signs Temp Pulse Resp BP Pulse Ox O2 Del Method 09/15/24 07:50 Room Air 09/15/24 07:17 36.7 C 77 18 114/72 100 Room Air
[2024-09-15] MEDS: SODIUM CHLORIDE 0.9% 1,000 ML IV SCH (15:01)
[2024-09-16 08:00] LABS: Hematocrit (blood only) 35.1 % (42.0-52.0); Hemoglobin 11.7 g/dl (14.0-18.0); Mean Corpuscular Hemoglobin 26.8 pg (25.0-34.0); Mean Corpuscular Hgb Conc 33.3 g/dL (32.0-36.0); Mean Corpuscular Volume 80.3 fL (80.0-100.0); Mean Platelet Volume 9.9 fL (9.4-12.4); Platelet Count 341 K/uL (130-400); RDW Coefficient of Variation 12.3 % (11.5-14.5); RDW Standard Deviation 35.8 fL (36.4-46.3); Red Blood Count 4.37 M/uL (4.70-6.10); White Blood Count 5.23 K/ul (4.8-10.8)
[2024-09-16 08:32] LABS: Albumin Globulin Ratio 0.6 (0.9-2); Bilirubin,Total 0.6 mg/dl (0.2-1.0); Globulin 5.2 gm/dl (2.5-4.0); Magnesium 2.1 mg/dl (1.7-2.4); Potassium 4.1 mmol/L (3.5-5.1); Total Protein 8.5 gm/dl (6.0-8.3)
[2024-09-16 08:34] LABS: Albumin Level 3.3 gm/dl (3.4-5.0); Calcium 9.1 mg/dl (8.6-10.3); Creatinine Clr Calc Pharmacy 138.5 ml/min
--- NOTE | 2024-09-16 10:46 | Nephrology Progress Note ---
Date of Service September 16, 2024 Assessment & Plan (1) Hyponatremia: Plan: Likeliest SIADH d/t lung disease; however hypovolemic hyponatremia also a clinical possibility. He is 8.8 L negative on the admission. >>>[place] language is not Taiwanese; it is [place] though also speaks [place], latter better than Taiwanese Na has been dropping everyday and dropped to 124 and then went up a bit to 127--now stalled there. ideally sNa would be 129-130 before d/c. uOsm and sOsm respectively 09/12 881, 267 on 09/12; 345 on 09/14 uOsm w/ Moo 96 No e/o salt losing nephropathy that can be seen w/ renal TB >orthostatic VS today to eval if vol depleted or not >> BP not changing much; HR increased by 24 bpm >defer to ID re anti TB medications >cont FR 1.2 L daily PRELIMINARY NEPH D/C RECS DX: hypotonic hyponatremia from SIADH / structural lung disease RX: -lasix 80 mg po bid16 or bid17 whatever is closest to facility routine -potassium 20 mEq bid -salt tablets 1 gm bid OTHER POST D/C CARE: -fluid limit 1.2 L daily (about 40 oz) -protein shake daily; protein shakes do NOT count toward fluid limit -target 70 gm daily protein intake -maintain K of 4 -bmp ideally Mon/Thurs and at least weekly x 3 wks -follow up inf dzs recommendations for monitoring liver function on anti TB meds F/U: -suggest facility provider review labs as above, adjust medications -may need nephro follow up as OP Care reviewed multiple times through the day with Dr Izaguirre via TText re medications, further evaluation of hyponatremia, symptoms; we are in agreement. Admission and Anticipated Discharge Date Admission Date: September 10, 2024 Subjective had 1L NS yesterday w/ lasix >> Na down today to 126; endorses 7/10 pain in R side / RUQ area as of this am; more dizzy w/ standing; no other pain; some language challenges today Review of Systems 2 Review of Systems: All systems reviewed & are unremarkable except as noted in Subjective Physical Exam 2 Constitutional: well developed, + thin and cooperative; no acute distress and not ill appearing (but appears tired) Eyes: EOM intact bilaterally ENMT: Mouth: + dry oral mucous membranes (markedly so) Respiratory: normal respiratory effort Auscultation: lungs clear to auscultation bilaterally and + diminished lung sounds (L base; L chest tube out now); no wheezes Cardiovascular: RRR, no murmur, no edema Gastrointestinal (Abdomen): Inspection/Auscultation: normal bowel sounds P ercussion/Palpation: abdomen soft; abdomen nontender Musculoskeletal: Extremities: strength 5/5 throughout Skin: no rashes, warm and dry Results & Data Vital Signs (Past 12 Hours) Vital Signs O2 Del Method 09/16/24 10:02 Room Air Laboratory Results 09/16/24 06:17 09/16/24 06:17
--- NOTE | 2024-09-16 12:40 | Hospitalist Progress Note ---
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 Patient's status post chest tube drainage of loculated pleural effusion and missed protocol. Chest tube now removed. Patient saturating well on room air. Patient started on RIPE therapy-communication with infectious disease today, stating that he will need to continue with this therapy and follow with Department of Health. Typical treatment plan is for drug regimen for 8 weeks then rifampin and isoniazid for additional 18 weeks. Patient also with fluctuating hyponatremia. Most likely SIADH in setting of pulmonary infection. Nephrology has been on board and managing. Communication with nephrology team, attempting to coordinate a medical plan that patient can return to his long term center and continue as an outpatient. Communication with nursing staff, reports that the patient is eating well Schedule Pepcid for presumed gastritis based on patient's hand motions and pointing to his epigastric area. He was unable to communicate his exact symptoms through the historical interpreter Schedule melatonin for patient's complaint of insomnia. Patient will need to follow closely with Department of Health for full treatment of his presumed latent TB. Admission and Anticipated Discharge Date Admission Date: September 10, 2024 Subjective Patient really denies any specific complaints that he could express to the historical interpreter. He seems to point to his epigastric area. Question possibly some heartburn. He is also asking for something for sleep. It is noted that he has not received his melatonin the last few nights. Physical Exam Physical Exam: Constitutional: Alert, thin, underweight, nontoxic HEENT: Mucous membranes moist. Lungs: Decreased breath sounds CV: S1-S2, regular Abdomen: Soft, nontender, nondistended Extremities: No significant edema Neuro: No focal deficits Psych: Cooperative, normal mood Results & Data Results & Data Vital Signs (Past 12 Hours) Vital Signs O2 Del Method 09/16/24 10:02 Room Air Diagnostic Findings Reviewed imaging, laboratory and diagnostic studies. Pertinent findings as below. CBC stable Hemoglobin stable Sodium 126, fluctuating Chloride 91 BUN 33 Creatinine 0.75 LFTs stable/improved
[2024-09-16] MEDS: MELATONIN 3 MG TAB PO SCH (21:19)
[2024-09-16] MEDS: FAMOTIDINE 20 MG TAB PO SCH (21:22)
--- NOTE | 2024-09-17 05:41 | Ultrasound Report ---
EXAM: US liver CLINICAL HISTORY: pain TECHNIQUE: Limited ultrasound of the liver and gallbladder was performed in grayscale and Doppler. Multiple images were obtained in transverse and longitudinal planes. COMPARISON: No prior studies are available for comparison. FINDINGS: Liver: Liver size: seen mildly enlarged measuring 16.9 cm with normal parenchymal echogenicity. No evidence of focal lesions, cysts, or masses. Hepatic vasculature appears normal. Gallbladder: Gallbladder is visualized and appears normal in size and shape. A possible small amount of free fluid seen adjacent to the gallbladder, however could be physiological/artifactual finding. No gallstones or wall thickening. Normal gallbladder wall thickening measuring 2 mm. Negative Baez's sign noted. Biliary Tree: Common bile duct diameter: 4 mm. Common bile duct is within normal limits in caliber and not dilated. No evidence of choledocholithiasis or biliary obstruction. Pancreas: No abnormality detected within the pancreas. The right kidney: Limited visualization of the right kidney due to overlying bowel gas and body habitus. The right kidney measures 11.0 cm in length. No hydronephrosis or calculi noted. Additional findings: Prominent-appearing bowel loops noted throughout the examination, could be due to distended bowel gas. IMPRESSION: 1. Mild hepatomegaly 2. A possible small amount of free fluid seen adjacent to the gallbladder, however could be physiological/artifactual finding. 3. Prominent-appearing bowel loops noted throughout the examination, could be due to distended bowel gas. 4. Limited visualization of the right kidney due to overlying bowel gas and body habitus. 5. Repeating the abdominal ultrasound after good preparation may be advised. Clinical and lab correlation are also advised. Electronically signed by Darren Patrick 09-17-2024 05:40 AM
--- NOTE | 2024-09-17 08:02 | Nephrology Progress Note ---
Date of Service September 17, 2024 Assessment & Plan (1) Hyponatremia: Plan: Likeliest SIADH d/t lung disease; however hypovolemic hyponatremia also a clinical possibility. He is 10.5 L negative on the admission. >>>[place] language is not Slovenian; it is [place] though also speaks [place], latter better than Slovenian; [place] interpreters available but need to be scheduled ideally 3h ahead; there is a charge if appt not kept Na has been dropping everyday and dropped to 124 and then went up a bit to 127--now stalled there; today's labs pending. ideally sNa would be 129-130 before d/c. uOsm and sOsm respectively 09/12 881, 267 on 09/12; 345 on 09/14 uOsm w/ Moo 96 No e/o salt losing nephropathy that can be seen w/ renal TB >orthostatic VS yesterday not technically positive though HR increased by 24 bpm >defer to ID re anti TB medications >>liberalize FR 1.5 L daily >>> I added liver enzymes on to labs today and stopped iron given RUQ pain and constipation; also liberalized FR to 1.5 L daily same reason PRELIMINARY NEPH D/C RECS DX: hypotonic hyponatremia from SIADH / structural lung disease RX: -lasix 80 mg po bid16 or bid17 whatever is closest to facility routine -potassium 20 mEq bid -salt tablets 1 gm bid OTHER POST D/C CARE: -fluid limit 1.5 L daily (about 50 oz) -protein shake daily; protein shakes do NOT count toward fluid limit -target 70 gm daily protein intake -maintain K of 4 -bmp ideally Mon/Thurs and at least weekly x 3 wks -follow up inf dzs recommendations for monitoring liver function on anti TB meds F/U: -suggest facility provider review labs as above, adjust medications -may need nephro follow up as OP Care reviewed with Dr Izaguirre via TText re medications, labs, symptoms, autos disassembler strategies; we are in agreement. Admission and Anticipated Discharge Date Admission Date: September 10, 2024 Subjective pain today RUQ/ R abdomen worse than yesterday. no n/v, no f/c. last bm yesterday; no voidign issues. no sob, cough. Review of Systems 2 Review of Systems: All systems reviewed & are unremarkable except as noted in Subjective Physical Exam 2 Constitutional: well developed, + acute distress (mild w/ RUQ pain), + ill appearing (midly), + thin and cooperative Eyes: EOM intact bilaterally ENMT: Mouth: + dry oral mucous membranes (markedly so) Respiratory: normal respiratory effort Auscultation: lungs clear to auscultation bilaterally and + diminished lung sounds (L base; L chest tube out now); no wheezes Cardiovascular: RRR, no murmur, no edema Gastrointestinal (Abdomen): Inspection/Auscultation: normal bowel sounds P ercussion/Palpation: + abdomen tender and abdomen soft; no guarding, abdomen not rigid and no ascites Musculoskeletal: Extremities: strength 5/5 throughout Skin: no rashes, warm and dry Psychiatric: Orientation: alert and oriented x 3 Results & Data Vital Signs (Past 12 Hours) Vital Signs Temp Pulse Resp BP Pulse Ox O2 Del Method 09/17/24 07:19 36.8 C 81 16 109/74 98 Room Air 09/17/24 06:03 117/73 09/16/24 21:14 36.8 C 85 16 115/75 100 Room Air 09/16/24 21:00 Room Air Laboratory Results 09/16/24 06:17
[2024-09-17 08:04] LABS: Anion Gap 8 (3-11); BUN Creatinine Ratio 36.8 (10-20); Blood Urea Nitrogen 28 mg/dl (6-23); Carbon Dioxide 28 mmol/L (21-32); Chloride 91 mmol/L (98-107); Creatinine Clr Calc Pharmacy 136.6 ml/min; Glucose 89 mg/dl (70-99(Fasting)); Sodium 127 mmol/L (136-145)
[2024-09-17] MEDS: UREA (UREA-NA) 15 GM PACK PO SCH (08:58)
[2024-09-17] MEDS: MAGNESIUM CITRATE 296 ML/BTL PO STA (09:00)
[2024-09-17 09:53] LABS: Albumin Level 3.1 gm/dl (3.4-5.0); Bilirubin Direct 0.1 mg/dl (0-0.2); Bilirubin,Total 0.6 mg/dl (0.2-1.0)
[2024-09-17 09:59] LABS: Total Protein 9.2 gm/dl (6.0-8.3)
--- NOTE | 2024-09-17 12:18 | Hospitalist Progress Note ---
Date of Service September 17, 2024 Assessment & Plan (1) Active tuberculosis: (2) Loculated pleural effusion: (3) SIADH (syndrome of inappropriate ADH production): (4) Hyponatremia: (5) Constipation: (6) Musculoskeletal chest pain: (7) Muscular abdominal pain in right upper quadrant: Plan Patient 29-year-old gentleman with active tuberculosis Started on RIPE therapy, Fevers have resolved Communication with infectious disease, clarified diagnosis is active tuberculosis and must complete the full course of therapy. Patient with hyponatremia most likely SIADH. Sodium stable at 127. Nephrology recommendations noted Patient complaining of some right-sided chest and abdominal pain. On exam this appears to be musculoskeletal in nature. Also component of constipation. Mag citrate today to induce bowel movement As needed pain medications Encourage activity as able Phone conversation with infection control, learned that the Department of Health does not follow immigration detainee's and would not be involved in ensuring the patient completes his medical therapy. Patient is able to receive medications while at the correction center. Phone conversation with Dr. Biggs at [facility] correction center. They will be able to provide medications while patient is a detainee, however cannot ensure that the patient will be able to complete the course of therapy due to the fact they have no idea how long he will be in the correction center. 65 minutes spent on coordination of care, review record, documentation, examining this patient, communication with the medical teams Admission and Anticipated Discharge Date Admission Date: September 10, 2024 Subjective Patient complaining of some right-sided chest pain and abdominal pain. Noted that he has not had a bowel movement for several days. Physical Exam Physical Exam: Constitutional: Alert, nontoxic, underweight HEENT: Mucous membranes moist. Lungs: Decreased breath sounds at bases CV: S1-S2, regular Abdomen: Soft,, not distended, no guarding, no rigidity, mild tenderness to palpation right abdomen Extremities: No significant edema Musculoskeletal: Tenderness to palpation right chest wall, rib cage Neuro: No focal deficits Psych: Cooperative, flat affect, depressed mood Results & Data Results & Data Vital Signs (Past 12 Hours) Vital Signs Temp Pulse Resp BP Pulse Ox O2 Del Method 09/17/24 09:17 Room Air 09/17/24 07:19 36.8 C 81 16 109/74 98 Room Air 09/17/24 06:03 117/73 Diagnostic Findings Reviewed imaging, laboratory and diagnostic studies. Pertinent findings as below. Ultrasound right upper quadrant patient's son showed essentially normal gallbladder, no significant ductal dilatation, no cholelithiasis or obstruction. Some prominent bowel loops consistent with bowel gas Sodium 127 Chloride 91 Creatinine 0.76 LFTs within normal range
--- NOTE | 2024-09-17 14:15 | Infectious Disease Progress Nt ---
Date of Service September 17, 2024 Assessment & Plan (1) Active tuberculosis: Plan Cultures may take as along as 8 weeks to turn positive. The patient is considered to have active TB at this point based on imaging, history, and analysis of pleural fluid to date. During this 8 week time period while cultures and sensitivities are pending, he should remain on RIPE therapy: 1. Rifampin 600mg po qd 2. INH 300mg po qd 3. Ethambutol 1200mg po qd 4. Pyrazinamide 1500mg po qd 5. Vitamin B6 suuplementation (pyridoxine) 25mg po qd He should have his LFT's checked again in 4 weeks and be seen by an pc technician to evaluate potential ethambutol toxicity. Subjective Patient not seen today. Chart reviewed and case discussed with Dr. Izaguirre. No fevers. AFB cultures remain pending. Results & Data Vital Signs (Past 12 Hours) Vital Signs Temp Pulse Resp BP Pulse Ox O2 Del Method 09/17/24 09:17 Room Air 09/17/24 07:19 36.8 C 81 16 109/74 98 Room Air 09/17/24 06:03 117/73
[2024-09-18] MEDS ORDERED: PYRAZINAMIDE 500 MG TABLET PO SCH
[2024-09-18] MEDS ORDERED: ISONIAZID 300 MG TAB PO SCH
[2024-09-18] MEDS ORDERED: rifAMPin 300 MG CAPSULE PO SCH
[2024-09-18] MEDS ORDERED: ETHAMBUTOL HCL 400 MG TAB PO SCH
[2024-09-18 06:36] LABS: Hematocrit (blood only) 35.1 % (42.0-52.0); Hemoglobin 11.6 g/dl (14.0-18.0); Mean Corpuscular Hemoglobin 26.7 pg (25.0-34.0); Mean Corpuscular Volume 80.9 fL (80.0-100.0); Mean Platelet Volume 9.6 fL (9.4-12.4); Platelet Count 362 K/uL (130-400); RDW Coefficient of Variation 12.2 % (11.5-14.5); RDW Standard Deviation 35.8 fL (36.4-46.3); Red Blood Count 4.34 M/uL (4.70-6.10); White Blood Count 3.63 K/ul (4.8-10.8)
[2024-09-18 07:25] LABS: Albumin Level 3.2 gm/dl (3.4-5.0); Bilirubin,Total 0.5 mg/dl (0.2-1.0); Calcium 9.5 mg/dl (8.6-10.3); Potassium 3.7 mmol/L (3.5-5.1)
[2024-09-18 07:28] LABS: Albumin Globulin Ratio 0.6 (0.9-2); Creatinine Clr Calc Pharmacy 150.5 ml/min; Globulin 5.5 gm/dl (2.5-4.0); Total Protein 8.7 gm/dl (6.0-8.3)
--- NOTE | 2024-09-18 08:57 | Nephrology Progress Note ---
Date of Service September 18, 2024 Assessment & Plan (1) Hyponatremia: Plan: Likeliest SIADH d/t lung disease; however hypovolemic hyponatremia also a clinical possibility. He is 10.5 L negative on the admission. >>>[place] language is not Kyr[place]z; it is [place] though also speaks [place], latter better than Kyrgyz; [place] interpreters available but need to be scheduled ideally 3h ahead; there is a charge if appt not kept Na has been dropping everyday and dropped to 124 and then went up a bit to 127--now 129 today. ideally sNa would be 129-130 before d/c. 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 RX: -lasix 80 mg po bid16 or bid17 whatever is closest to facility routine -potassium 20 mEq bid -salt tablets 1 gm bid OTHER POST D/C CARE: -fluid limit 1.5 L daily (about 50 oz) -protein shake daily; protein shakes do NOT count toward fluid limit -target 70 gm daily protein intake -maintain K of 4 -bmp ideally Mon/Thurs and at least weekly x 3 wks -follow up inf dzs recommendations for monitoring liver function on anti TB meds F/U: -suggest facility provider review labs as above, adjust medications -may need nephro follow up as OP; video ok Care reviewed with Dr Izaguirre via TText re medications including changes in potassium dosing, labs, symptoms; we are in agreement. Admission and Anticipated Discharge Date Admission Date: September 10, 2024 Subjective Right upper quadrant pain has improved. 3 bowel movements since yesterday. No diarrhea. Denies shortness of breath or other pain. Denies nausea. Review of Systems 2 Review of Systems: All systems reviewed & are unremarkable except as noted in Subjective Physical Exam 2 Constitutional: well developed, + cachectic and cooperative; no acute distress Eyes: EOM intact bilaterally ENMT: Mouth: + dry oral mucous membranes (markedly so) Respiratory: normal respiratory effort Auscultation: lungs clear to auscultation bilaterally and + diminished lung sounds (L base; L chest tube out now); no wheezes Cardiovascular: RRR, no murmur, no edema Gastrointestinal (Abdomen): Inspection/Auscultation: normal bowel sounds P ercussion/Palpation: abdomen soft; abdomen nontender and no ascites Musculoskeletal: Extremities: strength 5/5 throughout Skin: no rashes, warm and dry Psychiatric: Orientation: alert and oriented x 3 Results & Data Vital Signs (Past 12 Hours) Vital Signs Temp Pulse Resp BP BP Pulse Ox O2 Del Method 09/18/24 07:31 36.8 C 87 16 108/71 100 Room Air 09/17/24 21:30 104/68 09/17/24 21:04 36.7 C 81 18 99/64 L 100 Room Air Laboratory Results 09/18/24 05:28 09/18/24 05:28
[2024-09-18] MEDS: POTASSIUM CHLORIDE CRTAB 20 MEQ TABCR PO ONE (09:28)
[2024-09-18] MEDS: POTASSIUM CHLORIDE CRTAB 20 MEQ TABCR PO SCH (09:29)
--- NOTE | 2024-09-18 10:16 | Discharge Summary ---
Discharge Summary Date of Service September 18, 2024 Principal Dx & Hospital Course #1 = Principal Diagnosis (1) Active tuberculosis: (2) Loculated pleural effusion: (3) SIADH (syndrome of inappropriate ADH production): (4) Hyponatremia: (5) Constipation: (6) Musculoskeletal chest pain: (7) Muscular abdominal pain in right upper quadrant: Plan Patient is 29-year-old gentleman from [facility] who is at the [facility] halfway [place]. Patient was sent to the emergency room when he was noted to have a positive PPD and pleural effusions on routine screening. Patient was admitted to the hospital. Pulmonary consultation was obtained and patient underwentLeft- sided thoracentesis and placement of the pigtail catheter. He was started empirically on antibiotics. Patient was at high risk for TB and AFB cultures, smears and sputum's were sent. Infectious disease consultation was obtained. Patient underwent a MIST 2 procedure for the pleural effusion given through the pigtail catheter. Patient continued to have some fevers. And despite negative AFB he did have a positive gold testing and was started on RIPE therapy. With this initiation of treatment his fevers resolved. Pigtail catheter was removed. His overall symptoms improved. He was noted to be hyponatremic. Nephrology consultation was obtained. Was determined to be SIADH from his tuberculosis. He was treated with Lasix, salt tablets, urea. With treatment of the tuberculosis his sodium levels improved. Infection control, Department of Health, and the halfway center was contacted and care coordinated. Infectious disease is recommending treatment for active TB. His other laboratory studies stabilized. On the day of discharge his vital signs were stable. [facility] [place] [facility]. Notes For Next Care Provider Nephrology recommending: BMP on Mondays and to follow sodium levels. Infectious disease recommending: RIPE 4 medication regimen for minimum of 8 weeks, then 2 medication regimen for additional 16 weeks LFT testing monthly while on RIPE Ophthalmology evaluation within the next month 70 g protein diet Protein shake daily, this does not count towards fluid restriction 1.5 L fluid restriction daily Medication Changes From Visit RIPE TB treatment plan Pepcid Probiotic Vitamin B6 Salt tablets Lasix MiraLAX Potassium supplement Admission HPI Per Admitting Provider This is a 29 year male who is from [facility] who presents from [facility] facility due to concern for cough x 1 week and CXR revealing moderate sized pleural effusion. Hx obtained from ED provider, provider at [facility] facililty and patient. Pt recently arrived at [facility] about 1 week ago. He did have a PPD there and it was read as negative; however per ED provider it is > 15mm and technically positive. Patient reports night sweats, fever and weight loss over the last several months. In ED he was hemodynamically stable. Lab work notable for h/h 11.1 and 32.2, sodium 130, ast 41, alt [address] chest revealed Large left pleural effusion with near complete compressive atelectasis of the left lower lung lobe. Recommend follow-up chest CT after the pleural effusion has resolved to rule out underlying mass at the left lower lung lobe. He was seen and evaluated by pulmonology in ED who is going to perform a thoracentesis later today. He also has a quantiferon pending. Given concerning sx he will be admitted to TB rule out before he can return back to [facility]. Admission Exam Per Admitting Provider See H&P Discharge Exam Constitutional: Alert, nontoxic, thin and underweight HEENT: Mucous membranes moist. Lungs: Decreased breath sounds, few crackles at bases. Chest tube insertion site healing well CV: S1-S2, regular Abdomen: Soft, nontender, nondistended Extremities: No significant edema Neuro: No focal deficits Psych: Cooperative, normal mood Updated Medication List Medication Instructions Recorded Confirmed Type guaifenesin 100 mg/5 mL oral 200 mg PO Q4H PRN Cough/Congestion 09/10/24 09/10/24 History liquid (Kirsty-Tussin) L.acidop,casei,lactis,rham-B.lact,torrie 1 cap PO DAILY 30 days #30 caps 09/18/24 Rx 625 mg (10 billion cell) capsule (Advanced Probiotic) acetaminophen 325 mg tablet 650 mg (2 x 325 mg) PO Q4H PRN 09/18/24 Rx fever or pain #360 tabs ethambutol 400 mg tablet 1,200 mg (3 x 400 mg) PO DAILY 60 09/18/24 Rx days #180 tabs famotidine 20 mg tablet 20 mg PO BID 30 days #60 tabs 09/18/24 Rx furosemide 80 mg tablet (Lasix) 80 mg PO BID #60 tabs 09/18/24 Rx isoniazid 300 mg tablet 300 mg PO DAILY 180 days #180 tabs 09/18/24 Rx polyethylene glycol 3350 17 gram 17 g PO 1600 #30 ea 09/18/24 Rx oral powder packet (Miralax) potassium chloride 20 mEq 20 meq PO BID 30 days #60 tabs 09/18/24 Rx tablet,extended release(part/cryst) pyrazinamide 500 mg tablet 1,500 mg (3 x 500 mg) PO DAILY 60 09/18/24 Rx days #180 tabs pyridoxine (vitamin B6) 50 mg 25 mg (1/2 x 50 mg) PO QAM 30 days 09/18/24 Rx tablet (Vitamin B-6) #15 tabs rifampin 300 mg capsule 600 mg (2 x 300 mg) PO DAILY 180 09/18/24 Rx days #360 caps sodium chloride 1,000 mg soluble 1,000 mg PO BID 30 days #60 tabs 09/18/24 Rx tablet Hospital Stay Data Consultations 09/10/24 12:24 ED Decision to Admit Stat 09/10/24 16:25 Consult Pulmonology Routine 09/12/24 13:56 Consult Infectious Diseases Routine 09/12/24 14:06 Consult Nephrology Routine Diagnostic Imagining Performed 09/10/24 09:23 CT angio chest PE protocol Stat 09/10/24 10:38 US point of care ultrasound Urgent 09/10/24 13:54 US point of care ultrasound Stat 09/11/24 08:43 US point of care ultrasound Urgent 09/17/24 US liver Routine Reviewed imaging, laboratory and diagnostic studies. Pertinent findings as be low. Sputum smear negative for AFB x 3 Sputum culture negative for AFB x 1 Pleural fluid culture negative for AFB, no bacterial growth Blood culture no growth x 5 days WBCs 3.6 Hemoglobin 11.6 Platelets of 362 Sodium 131, improved Potassium 3.7 Chloride 91 Carbon dioxide 30 BUN 40 Creatinine 0.69 LFTs are within normal ranges Vitamin B12 694 Folate 13.5 TSH 1.09 TB Gold testing positive Pathology from pleural fluid no malignancy, scattered lymphocytes no overt AFB Liver ultrasound showed no evidence of choledocholithiasis or biliary obstruction, gallbladder within normal ranges Most recent chest x-ray showed removal of chest tube no significant pneumothorax stable patchy nodular opacity left lung base consistent with trace residual effusion CTA of the chest was negative for pulmonary embolism, large left pleural effusion, suspected residual thymus in the mediastinum and some upper limit of normal mediastinal lymph nodes Pending Results Patient Have Any Pending Studies at Discharge: Yes Discharge Instructions Given to Patient (Per Discharging Provider) Make every attempt to complete the full course of treatment for your tuberculosis. It will take 6 months to complete treatment Follow at Center for regular labs Continue with healthy diet You will need blood work done regularly: BMP 2 times weekly, LFTs monthly Total Time Total Time Spent Total Time Spent (In Minutes): 46
== END 2024-09-18 13:45 | DRG 178 ==
LOC: ED 07:43 → 3E 12:42 → SUATTDRO 12:42 → 3E 14:42